=== PATIENT | female | born 1975 | race African-American/Black ===

== ENCOUNTER → 2020-01-11 08:33 | Outpatient (CLI) | payer OTHER, SELFPAY ==
--- NOTE | ~2020-01-11 | CT_ITS ---
EXAMINATION: CT lumbar spine wo con DATE: 01/11/2020 08:50 INDICATION: Low back pain. Other spondylosis with myelopathy, lumbar region. TECHNIQUE: Computed tomography (CT) of the lumbar spine was performed without intravenous contrast. A utomated exposure control and iterative reconstruction technique were employed. The dose-length produ ct was 900.15 mGy-cm. COMPARISON: Lumbar spine MRI 09/30/2011 FINDINGS: Bone alignment is normal. Vertebral body heights and intervertebral disc heights are normal . The following disc levels are specifically discussed: L1-L2: The disc does not extend beyond the endplate margin. There is mild bilateral facet joint osteo arthritis. There is no neural foraminal stenosis. There is no central canal stenosis. L2-L3: The disc does not extend beyond the endplate margin. There is mild bilateral facet joint osteo arthritis. There is no neural foraminal stenosis. There is no central canal stenosis. L3-L4: The disc is mildly bulging. There is mild bilateral facet joint osteoarthritis. There is mild left neural foraminal stenosis. There is no central canal stenosis. L4-L5: The disc is bulging. There is severe bilateral facet joint osteoarthritis. There is mild bilat eral neural foraminal stenosis. There is mild central canal stenosis. L5-S1: The disc does not extend beyond the endplate margin. There is severe right and moderate left f acet joint osteoarthritis. There is mild bilateral neural foraminal stenosis. There is no central can al stenosis. IMPRESSION: 1. Mild lumbar spondylosis. Reviewed, dictated and finalized at location A. IMPRESSION: 1. Mild lumbar spondylosis.
== END ==
PROVIDERS: PCP Family Medicine; Visit Provider Family Medicine
DX: M47.16 Other spondylosis with myelopathy, lumbar region (principal)
CPT/HCPCS: 72131

== ENCOUNTER 2020-05-09 10:00 | Outpatient (RCR) | payer OTHER, SELFPAY ==
--- NOTE | 2020-02-09 10:55 | PTOPEVAL ---
INITIAL PHYSICAL THERAPY EVALUATION and PLAN OF CARE Thank you for referring Janett Oconnor to [facility].? Janett is scheduled to be seen for physical therapy? 2x/week for 4 weeks. Please review, sign, date and return this plan of care ANALI. I agree with and certify that the following plan of care is medically necessary. Referring Physician Date Admitting Provider: Attending Provider: PHYSICIAN NOT ON STAFF Referring Provider: *PT Outpatient Evaluation Start: 02/09/20 09:49 Freq: Status: Active Protocol: Document 02/09/20 09:40 LISETH (Rec: 02/09/20 10:55 LISETH [id number]) Therapy Assessment Status Assessment Status Assessment Status Evaluation Outpatient Past Medical History Past Medical History Source of Past Medical History Patient Neurological History Hx Neurological Disorders No Significant History Cardiovascular History Hx Hypertension Yes Respiratory History Hx Respiratory Disorders No Significant History Gastrointestinal History Hx Gastroesophageal Reflux Disease Yes Genitourinary History Hx Genitourinary Disorders No Significant History Musculoskeletal History Hx Back Pain Yes Hx Spinal Surgery Yes: C3-5 fusion Endocrine History Hx Endocrine Disorders No Significant History Evaluation Information Problem Diagnosis Acute on chronic lumbar pain Subjective Information Last year around 22 of December Query Text:As Reported By Patient/ 2019 - pain across lower back Family - took a trip with father - pain lasted for about a month - rest made it better and medication. Returned July 2019 - just came back - mild but there - then around December - went on another car trip - broke up the drive - 2nd leg of trip - flared up again - tried medication - wouldn't calm down - then added hydromorphone - which she has weaned herself from. She was passenger. Standing is worse, sitting a little better, walking the best. Sleeping is disturbed. Difficulty getting out of bed - sitting to standing - movement is the worse. Feels better after a shower - heat does help it at times. Usually takes 1-1.5 hours to
--- NOTE | 2020-03-07 11:27 | PTOPEVAL ---
PHYSICAL THERAPY RE-EVALUATION and PLAN OF CARE UPDATE Thank you for referring Janett Oconnor to [facility].? Janett has made minimal gains towards goals set. Would like to switch her exercises to therapeutic exercises in an aquatic environment to see if core strength gains can be made with reduced back pain. The patient is scheduled to be seen for physical therapy? 2x/week for 3 weeks. Please review, sign, date and return this plan of care ANALI. I agree with and certify that the following plan of care is medically necessary. Referring Physician Date Admitting Provider: Attending Provider: PHYSICIAN NOT ON STAFF Referring Provider: *PT Outpatient Evaluation Start: 02/09/20 09:49 Freq: Status: Active Protocol: Document 03/07/20 10:15 LISETH (Rec: 03/07/20 11:22 LISETH [id number]) Therapy Assessment Status Assessment Status Assessment Status Re-evaluation Evaluation Information Problem Subjective Information Janett received injection 08/05/ Query Text:As Reported By Patient/ 2019 - L5/S1 interlaminar Family epidural. Janett feels better after joint mobilization - less clicking when walking. She can then tell when things start to go off with increase in clicking. Not sure how effective ultrasound was due to having injection later that same day, but overall feeling much better since 03/05/2020. Pain Assessment Timing of Pain Assessment Timing of Pain Assessment Assessment Pain Scale Pain Scale Used Numeric (1 - 10) Self Report Pain Assessment Lower Back Reported Pain Level 2 Other Pain Description clicking with walking Lowest Pain Intensity 2 Greatest Pain Intensity 5 Pain Score Pain Score 2: Self Report Muscle Length Testing Muscle Length Testing Right Hamstring Length -15 Query Text:(90 - 90 Position) Palpation Assessment Palpation Palpation Decreased tenderness/tissue tension R buttock muscles today. Less tenderness with sacral P-A mob. Decreased lateral mobility L5/S1 L to R as compared R to L. No tenderness with P-A mob lumbar spinal segments. Mild tightness present with lumbar/ sacral musculature. Aquatic Therapy Assessment Aquatic Therapy Assessment Fear of Water No Cardiac Issues Affecting Aquatic No Treatment
--- NOTE | 2020-04-02 14:25 | PCPTNOTE ---
Patient called & cancelled scheduled appointment this date due to having another appointment, her re-eval will need to be reschedule.
--- NOTE | 2020-04-04 10:44 | PTOPEVAL ---
PHYSICAL THERAPY EVALUATION and UPDATED PLAN OF CARE Thank you for referring Janett Oconnor to [facility].? Janett is scheduled to be seen for physical therapy? 2x/week for 4 weeks - 1x/wk on land, 1x/wk in aquatic environment. Please review, sign, date and return this updated plan of care ANALI. I agree with and certify that the following plan of care is medically necessary. Referring Physician Date Admitting Provider: Attending Provider: Sha Dash MD Referring Provider: *PT Outpatient Evaluation Start: 02/09/20 09:49 Freq: Status: Active Protocol: Document 04/04/20 10:10 LISETH (Rec: 04/04/20 10:44 LISETH [email or web address]) Therapy Assessment Status Assessment Status Assessment Status Re-evaluation Evaluation Information Problem Subjective Information September reports that she Query Text:As Reported By Patient/ received another injection in Family her tailbone area - discomfort along lower back, into R buttock/thigh region. She reports still having clicking on R side -but just the sound not painful. Enjoying the aquatic therapy - enjoys the jet pulsating action. Sleeping better. Doing more sitting at her desk - will feel better - but still having some discomfort with that. She feels that she is doing well now - but not at her normal activity level. She would like to continue with PT - 1 land, 1 aquatic for several more weeks so that she can increase her activity level while being supervised and monitored with the increase in activity. Pain Assessment Timing of Pain Assessment Timing of Pain Assessment Assessment Pain Scale Pain Scale Used Numeric (1 - 10) Self Report Pain Assessment Lower Back Reported Pain Level 2 Lowest Pain Intensity 2 Greatest Pain Intensity 4 Pain Score Pain Score 2: Self Report Cervical and Lumbar ROM Lumbar ROM Lumbar Flexion (0-90) 65 Query Text:Active in Degrees Lumbar Extension (0-40) 10 Query Text:Active in Degrees Lumbar Lateral Flexion Right (0-40) 15 Query Text:Active in Degrees Lumbar Lateral Flexion Left (0-40) 15 Query Text:Active in Degrees Lumbar Comments
--- NOTE | 2020-05-07 14:19 | PCPTNOTE ---
Patient called & cancelled scheduled appointment this date due to having another appointment.
--- NOTE | 2020-05-09 10:57 | PTOPEVAL ---
PHYSICAL THERAPY DISCHARGE SUMMARY Thank you for referring Janett Oconnor to [facility].? Janett has been seen in PT x 20 visits - combination of land based and aquatic based. She has met goals set and ready for d/c from PT to HEP. She is always welcomed to phone with any questions and/or concerns. I agree with Janett's discharge from PT. Referring Physician Date Admitting Provider: Attending Provider: PHYSICIAN NOT ON STAFF Referring Provider: *PT Outpatient Evaluation Start: 02/09/20 09:49 Freq: Status: Active Protocol: Document 05/09/20 10:00 LISETH (Rec: 05/09/20 10:57 LISETH [email or web address]) Therapy Assessment Status Assessment Status Assessment Status Discharge Evaluation Information Problem Subjective Information September states that there is Query Text:As Reported By Patient/ still something present with R Family lower back - doesn't get any better but then doesn't get any worse. Learning to live with this discomfort. Currently at 6 hours with work , to see Dr. Corbett after May 21 - then anticipating returning to full 8 hour work day. Injection in R SIJ/ sacral region - really helps. Not due for any further injections until June 2020. Household activity tolerance - better not 100% - still restricted with sweeping, mopping, vacuuming, cleaning bathtub. Hasn't done much outdoor activities. With work related activities - sitting tolerance ~ 1 hour. Pain Assessment Timing of Pain Assessment Timing of Pain Assessment Assessment Pain Scale Pain Scale Used Numeric (1 - 10) Self Report Pain Assessment Lower Back Reported Pain Level 1 Pain Description With Movement Other Pain Description twisting type of discomfort Lowest Pain Intensity 1 Greatest Pain Intensity 3 Pain Score Pain Score 1: Self Report Interventions Used Interventions Used By Clinicians Exercise Cervical and Lumbar ROM Lumbar ROM Lumbar Flexion (0-90) 55 Query Text:Active in Degrees Lumbar Extension (0-40) 20 Query Text:Active in Degrees Lumbar Lateral Flexion Right (0-40) 10 Query Text:Active in Degrees Lumbar Lateral Flexion Left (0-40) 10 Query Text:Active in Degrees
== END 2020-05-09 23:59 | disposition home or self-care (01) ==
LOC: ANHPT 10:00
PROVIDERS: PCP Family Medicine
DX: M54.5 Low back pain (principal)
CPT/HCPCS: 97014; 97035; 97110; 97113; 97140; 97161; G0283

== ENCOUNTER 2020-10-24 16:02 | Outpatient (CLI) | payer OTHER, SELFPAY ==
--- NOTE | ~2020-10-24 | XR_ITS ---
EXAMINATION: XR knee LT 3V DATE: 10/24/2020 16:45 INDICATION: Posterior left knee pain TECHNIQUE: AP, lateral and sunrise views of the left knee were obtained COMPARISON: None. FINDINGS: Alignment is normal. No fracture. Spaces appear normal. No joint effusion. Soft tissues are unremark able. IMPRESSION: 1. Negative left knee radiographs. Reviewed, dictated and finalized at location A.
--- NOTE | ~2020-10-24 | US_ITS ---
EXAMINATION: US venous doppler [facility] DATE: 10/24/2020 16:34 INDICATION: Lower limb swelling TECHNIQUE: Grayscale ultrasound images without and with compression and Doppler ultrasound images of the bilateral lower extremity veins were obtained. COMPARISON: None. FINDINGS: The visualized portions of right common femoral vein, profunda (deep) femoral vein, femoral vein, pop liteal vein, posterior tibial veins, peroneal veins, gastrocnemius vein and greater saphenous vein ou tflow are patent. The visualized portions of left common femoral vein, profunda femoral vein, femoral vein, popliteal v ein, posterior tibial veins, peroneal veins, gastrocnemius vein and greater saphenous vein outflow ar e patent. IMPRESSION: 1. No deep venous thrombosis in either lower limb. Reviewed, dictated and finalized at location A.
== END 2020-10-24 16:03 | disposition home or self-care (01) ==
PROVIDERS: PCP Family Medicine; Visit Provider Family Medicine
DX: R60.9 Edema, unspecified (principal); M25.562 Pain in left knee
CPT/HCPCS: 73562; 93970

== ENCOUNTER 2021-09-17 10:27 | Outpatient (CLI) | payer OTHER, SELFPAY ==
--- NOTE | ~2021-09-17 | MR_ITS ---
EXAMINATION: MR ankle LT wo con DATE: 09/17/2021 11:24 INDICATION: Unspecified injury of the Achilles tendon with left heel pain TECHNIQUE: Magnetic resonance imaging (MRI) of the left ankle was performed without intravenous contr ast. Sequences included sagittal, coronal, and axial proton-density weighted fast spin echo without a nd with fat saturation. COMPARISON: None. FINDINGS: Medial ankle ligaments: Deep and superficial deltoid ligaments as well as the spring ligament are normal. Lateral ankle ligaments: The anterior and posterior inferior tibiofibular ligaments are normal. The anterior talofibular, calc aneofibular and posterior talofibular ligaments are normal. Tendons: Tiny T1 hyperintense likely enthesopathic ossicles at the distalmost Achilles tendon which appears ot herwise normal with no tear, peritendinitis or thickening to suggest significant tendinosis. The reece neus longus and brevis tendons are normal. The tibialis anterior and extensor hallucis longus and ext ensor digitorum longus tendons are normal. The tibialis posterior, flexor digitorum longus and flexor hallucis longus tendons are normal. Plantar fascia: Plantar aponeurosis is normal. Bones/other: Bone alignment is normal. Normal marrow signal throughout with no fracture or pathologic marrow repla cing process. Joint spaces are normal. Fluid: Physiologic amount fluid in the joint spaces. No bursitis or tenosynovitis. 9 x 6 x 8 mm ganglion cys t along the lateral neck of the talus which appears to arise from the anterolateral aspect of the tib iotalar joint. Small amount of subcutaneous edema along the medial and lateral sides of the ankle. IMPRESSION: 1. Tiny enthesopathic ossicles at the distalmost aspect of the otherwise normal-appearing Achilles te ndon with no tear, peritendinitis or significant tendinosis. Reviewed, dictated and finalized at location A. IMPRESSION: 1. Tiny enthesopathic ossicles at the distalmost aspect of the otherwise normal -appearing Achilles tendon with no tear, peritendinitis or significant tendinos is.
== END 2021-09-17 10:28 | disposition home or self-care (01) ==
LOC: ANHIMG 10:35
PROVIDERS: PCP Family Medicine; Visit Provider Nurse Practitioner Gerontology
DX: S86.002A Unspecified injury of left Achilles tendon, initial encounter (principal)
CPT/HCPCS: 73721

== ENCOUNTER 2021-12-29 01:00 | Day surgery (SDC) | payer OTHER, SELFPAY ==
[2021-12-23 12:47] VITALS: BMI 42.2
--- NOTE | 2021-12-23 12:58 | PC.NURSE ---
Report to the Outpatient Waiting Room, entrance under the green pavilion located off [facility], at time __08:45AM__ on date __12-29-21__. OR Time: __10:45AM_. - You and your visitor will be asked a series of questions to screen for COVID 19 for your protection. - Only one visitor is allowed at this time. - The patient visitor is requested to leave or wait in car when not with patient. - A mask is required within the hospital. Patients may have clear liquids (water, carbonated beverages, clear teas, apple juice) until 3 hours prior to surgery with a maximum of 20 ounces. NPO 07:45AM - No food from midnight until time of surgery Take the following medications with a SIP of water the morning of surgery: TAKE DAILY MEDS Wednesday Medications to discontinue per physician N/A Date to take last dose Please no make-up, nail palauan, hairspray, perfume, deodorant, or body powder the day of surgery. No jewelry (including any body piercings) or valuables the day of surgery, leave them at home. Please take a shower or bath the night before, or the morning of, surgery with an antibacterial soap. Wear comfortable, loose fitting clothing. - Jewelry must be removed prior to entering the operating room. Rings and piercings that are not removed may be cut off. - The hospital will not accept responsibility for valuables. - Please leave all valuables, including medications, at home the day of surgery. If you are going home after surgery, a licensed superintendent drivers must drive you home. - NO public transportation without another adult. - We recommend that an adult stay with you for 24 hours following discharge. - We also recommend that you do not drive, make important decision, drink alcoholic beverages, or take any drugs that were not prescribed by your health care provider for at least 24 hours after your discharge time. Follow any additional instructions given to you from your surgeon. If you or anyone in your household have experienced Covid symptoms in the past week, please notify your surgeon or the nurse liaison at the phone number below for possible testing. Telephone instructions given to ____PATIENT and asked if any additional questions and then verbalized understanding. Patient advised to call surgeon office or pre surgery nurse liaison [phone] if any additional questions.
--- NOTE | 2021-12-29 08:25 | WPDHPUPDATE1 ---
History and Physical Update Update Date/Time: 12/29/21 08:25 History and Physical has been reviewed, including an updated exam of the patient. There are NO changes in the patient's condition. Risks, benefits, and alternatives have been discussed and questions answered. Patient agrees to proceed with procedure.
--- NOTE | 2021-12-29 08:25 | PM.HPGS ---
History of Present Illness History of Present Illness Consent: Risks, benefits, and alternatives have been discussed and questions answered. Patient agrees to proceed with procedure. Chief complaint: Menorrhagia Narrative: Janett Oconnor is a 46 year old female with new onset of prolonged menstrual bleeding. Patient with regular cycles until very recently when she had prolonged bleeding. Hemoglobin was normal and pelvic ultrasound revealed 1 fibroid. It was recommended to proceed with hysteroscopy. Risks of infection, bleeding, and perforation were reviewed. Possible pathology was discussed. The patient agrees to proceed. Review of Systems Review of Systems: All systems reviewed & are unremarkable except as noted in HPI and below (History of present illness) [facility] Past Medical History Medical History (Updated 12/29/21 @ 08:34 by Jeni Jo MD) Abnormal Papanicolaou smear of cervix with positive human papilloma virus (HPV) test History of cryo surgery Anxiety Chlamydia 1994 Constipation by delayed colonic transit Essential (primary) hypertension MDD (major depressive disorder), recurrent episode, moderate Mixed hyperlipidemia Morbid (severe) obesity due to excess calories (normal spontaneous vaginal delivery) Osteoarthritis of spine with radiculopathy, cervical region Syphilis 1992 Surgical History Surgical History (Updated 12/29/21 @ 08:32 by Jeni Jo MD) H/O laparoscopy X2 for ectopic in 2004 and 2008 History of cholecystectomy History of fusion of cervical spine 3 surgeries 1 in 2012 and 2 in 2016 Family History Family History Father Hypertension Cerebrovascular accident Family history of diabetes mellitus in first degree relative Family history of premature coronary heart disease, Onset Age: 40 Family history of elevated blood lipids Family history of chronic obstructive pulmonary disease Mother Patient's mother is in good health Sibling Patient's brother is in good health Other Breast cancer Depression Diabetes mellitus Epilepsy Heart disease Social History Social History Social History: Smoking status: Never smoker Second hand tobacco smoke exposure: No Alcohol intake: current Drinks per week: 2 Alcohol use details: COCKTAILS/WINE Substance use: never Substance use type: does not use Living arrangements: with family 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 Gender identity (if verbalized by the patient): Female Sexual Orientation (if Verbalized by the Patient): Straight or Heterosexual Spiritual care concerns: No Meds Home Medications and Allergies Home Medications Medication Instructions Recorded Confirmed Type acetaminophen 300 mg-codeine 30 mg 1 tablet PO Q8H PRN pain #20 tabs 09/17/21 12/23/21 Rx tablet celecoxib 200 mg capsule 200 mg PO DAILY PRN Pain 12/23/21 12/23/21 History clonidine HCl 0.1 mg tablet 0.1 mg PO DAILY 12/23/21 12/23/21 History ergocalciferol (vitamin D2) 1,250 1 cap PO WEEKLY 12/23/21 12/23/21 History mcg (50,000 unit) capsule furosemide 40 mg tablet 40 mg PO DAILY 12/23/21 12/23/21 History lisinopril 20 mg tablet 20 mg PO DAILY 12/23/21 12/23/21 History metoprolol succinate 25 mg 25 tablet PO DAILY 12/23/21 12/23/21 History tablet,extended release 24 hr Allergies Allergy/AdvReac Type Severity Reaction Status Date / Time No Known Allergies Allergy Verified 12/23/21 12:41 Exam Const: General: comfortable Nutritional Appearance: obese (BMI 43.4) Orientation/consciousness: patient oriented x3 GI: GI Palp: Yes Soft to palpation, No Tenderness to palpation present (GI) and No Palpable mass present : External Female Exam: normal external appearance Speculum Exam - Vagina: normal appearance of the vagina and normal v
[2021-12-29 08:44] VITALS: BP 157/80; PULSE 63; RESP 18; TEMP 37; O2SAT 98
[2021-12-29] MEDS: LACTATED RINGERS 1,000 ML 30 ML IV CONT ×2 (08:58→11:36)
[2021-12-29] MEDS: ACETAMINOPHEN 500 MG TABLET 1000 MG PO (08:59)
--- NOTE | 2021-12-29 09:09 | WPDANESEPPF ---
Anes - Initial Pre Proc Eval Procedure: Operation Date: 12/29/21 10:45 Proposed Procedures p Hysteroscopy with Dilation and Curettage - Jeni Jo MD Date/Time: 12/29/21 09:09 Surgeon: Jeni Jo MD Pre Op Diagnosis: Menorrhagia Patient Data Age: 46 Gender: F Height: 1.65 m Weight: 111.9 kg Last Vital Signs Temp 37.0 C 12/29/21 08:44 Pulse 63 12/29/21 08:44 Resp 18 12/29/21 08:44 BP 157/80 H 12/29/21 08:44 Pulse Ox 98 12/29/21 08:44 O2 Del Method Room Air 12/29/21 08:44 Allergies Allergy/AdvReac Type Severity Reaction Status Date / Time No Known Allergies Allergy Verified 12/29/21 08:43 Home Medications Medication Instructions Recorded Confirmed Type acetaminophen 300 mg-codeine 30 mg 1 tablet PO Q8H PRN pain #20 tabs 09/17/21 12/29/21 Rx tablet celecoxib 200 mg capsule 200 mg PO DAILY PRN Pain 12/23/21 12/29/21 History clonidine HCl 0.1 mg tablet 0.1 mg PO DAILY 12/23/21 12/29/21 History ergocalciferol (vitamin D2) 1,250 1 cap PO WEEKLY 12/23/21 12/29/21 History mcg (50,000 unit) capsule furosemide 40 mg tablet 40 mg PO DAILY 12/23/21 12/29/21 History lisinopril 20 mg tablet 20 mg PO DAILY 12/23/21 12/29/21 History metoprolol succinate 25 mg 25 tablet PO DAILY 12/23/21 12/29/21 History tablet,extended release 24 hr Patient hx anesthesia problems: none Family hx anesthesia problems: none Results Review: All pre-operative results and documents have been reviewed as part of the pre-operative evaluation. [facility] Past Medical History Medical History Abnormal Papanicolaou smear of cervix with positive human papilloma virus (HPV) test History of cryo surgery Anxiety Chlamydia 1994 Constipation by delayed colonic transit Essential (primary) hypertension MDD (major depressive disorder), recurrent episode, moderate Mixed hyperlipidemia Morbid (severe) obesity due to excess calories (normal spontaneous vaginal delivery) Osteoarthritis of spine with radiculopathy, cervical region Syphilis 1992 Surgical History Surgical History H/O laparoscopy X2 for ectopic in 2004 and 2008 History of cholecystectomy History of fusion of cervical spine 3 surgeries 1 in 2012 and 2 in 2016 Family History Family History Father Hypertension Cerebrovascular accident Family history of diabetes mellitus in first degree relative Family history of premature coronary heart disease, Onset Age: 40 Family history of elevated blood lipids Family history of chronic obstructive pulmonary disease Mother Patient's mother is in good health Sibling Patient's brother is in good health Other Breast cancer Depression Diabetes mellitus Epilepsy Heart disease Social History Social History Social History: Smoking status: Never smoker Second hand tobacco smoke exposure: No Alcohol intake: current Drinks per week: 2 Alcohol use details: COCKTAILS/WINE Substance use: never Substance use type: does not use Living arrangements: with family 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
[2021-12-29] MEDS: KETOROLAC 30 MG/ML VIAL (*BKC) IV PUSH (10:45)
--- NOTE | 2021-12-29 10:49 | W.PM.PROC2 ---
Procedure Note - Detailed Date of Procedure 12/29/21 Pre-op Diagnosis Menorrhagia Post-op Diagnosis Same Procedure Performed D&C hysteroscopy Surgeon Jeni Jo MD Anesthesia MAC and Local Findings Uterus sounds to 9cm and appears grossly normal Description of Procedure The patient is taken to the operating room and placed under anesthesia in the dorsal lithotomy position. She was prepped and draped in the usual sterile fashion. [place] speculum was placed in the vagina and the cervix grasped on the anterior lip with a tenaculum. The cervix is injected in each quadrant with 1% lidocaine. The uterus is sounded to 9cm. The cervix is serially dilated with Hegars to an 8. The diagnostic hysteroscope was then placed and with no abnormalities noted it was removed. The medium sharp curette is used to curette the endometrium until a good uterine cry was noted in all areas. All instruments were then removed. Sponge, needle, and instrument counts are correct per the OR staff. Patient is awakened from anesthesia and taken to recovery in stable condition. Estimated Blood Loss 5 Drains No Packing No Pathology Yes (Endometrial curettings) Complications No immediate complications Condition Stable Disposition PACU
[2021-12-29 10:53] VITALS: BP 157/97; PULSE 69; RESP 16; O2SAT 100
[2021-12-29 11:20] VITALS: BP 148/90; PULSE 49; O2SAT 99
[2021-12-29] MEDS: fentaNYL CITRATE INJ (*CRX) 100 MCG/2 ML VIAL 25 MCG IV PUSH ×2 (11:40→11:43)
[2021-12-29 11:50] VITALS: BP 165/97; PULSE 51
[2021-12-29] MEDS: oxyCODONE HCL (*CRX) 5 MG TAB IR PO (11:50)
[2021-12-29 12:20] VITALS: BP 149/91; PULSE 51
== END 2021-12-29 12:30 | disposition home or self-care (01) ==
PROVIDERS: PCP Family Medicine; Visit Provider Obstetrics & Gynecology Gynecology
PROC: 0U5B8ZZ Destruction of Endometrium, Via Natural or Artificial Opening Endoscopic (ICD-10-PCS; CPT 58563; principal; 2021-12-29 10:45)
DX: N92.0 Excessive and frequent menstruation with regular cycle (principal); I10 Essential (primary) hypertension; E78.2 Mixed hyperlipidemia; K59.01 Slow transit constipation; M47.22 Other spondylosis with radiculopathy, cervical region; F33.1 Major depressive disorder, recurrent, moderate; F41.9 Anxiety disorder, unspecified; E66.01 Morbid (severe) obesity due to excess calories; Z68.41 Body mass index [BMI] 40.0-44.9, adult
CPT/HCPCS: 58558; 88305; A9270; J1100; J1885; J2250; J2405; J2704; J3010; J7120

== ENCOUNTER 2022-03-03 10:14 | Outpatient (CLI) | payer OTHER, SELFPAY ==
--- NOTE | 2022-03-03 11:30 | NEURO_ITS ---
Impression: # Complains of numbness and pain of lower extremities. # Normal motor nerve conduction study. # Asymmetrical sensory neuropathy. # Normal needle/EMG exam. # Clinical correlation recommended. Nerve Conduction Studies Anti Sensory Summary Table Stim Site NR Peak (ms) P-T Amp (?V) Site1 Site2 Delta-P (ms) Dist (cm) Yoandy (m/s) Left Sup Fibular Anti Sensory (Ant Lat Mall) 14 cm 3.5 19.8 14 cm Ant Lat Mall 3.5 16.0 46 Right Sup Fibular Anti Sensory (Ant Lat Mall) NO RESPONSE 14 cm NR 14 cm Ant Lat Mall 16.0 Left Sural Anti Sensory (Lat Mall) Calf 4.0 2.1 Calf Lat Mall 4.0 16.0 40 Right Sural Anti Sensory (Lat Mall) NO RESPONSE Calf NR Calf Lat Mall 16.0 Motor Summary Table Stim Site NR Onset (ms) O-P Amp (mV) Site1 Site2 Delta-0 (ms) Dist (cm) Yoandy (m/s) Left Peroneal Motor (Vastus Med) Ankle 4.4 2.9 Popit Ankle 7.7 40.0 52 Popit 12.1 2.1 Right Peroneal Motor (Vastus Med) Ankle 4.7 2.1 Popit Ankle 8.0 37.0 46 Popit 12.7 3.0 Left Tibial Motor (Abd Zhao Brev) Ankle 5.1 4.5 Knee Ankle 8.8 41.0 47 Knee 13.9 3.1 Right Tibial Motor (Abd Zhao Brev) Ankle 4.9 6.4 Knee Ankle 9.1 40.0 44 Knee 14.0 2.6 F Wave Studies NR F-Lat (ms) L-R F-Lat (ms) Left Peroneal (Mrkrs) (EDB) 50.00 1.81 Right Peroneal (Mrkrs) (EDB) 48.20 1.81 Left Tibial (Mrkrs) (Abd Hallucis) 50.75 1.05 Right Tibial (Mrkrs) (Abd Hallucis) 49.70 1.05 EMG Side Muscle Nerve Root Ins Act Fibs Amp Dur Recrt Comment Right AntTibialis Dp Br Fibular L4-5 Nml Nml Nml Nml Nml Right Gastroc Tibial S1-2 Nml Nml Nml Nml Nml Right Fibularis Long Sup Br Fibular L5-S1 Nml Nml Nml Nml Nml Right Flex Dig Long Tibial L5-S2 Nml Nml Nml Nml Nml Right Ext Dig Brev Dp Br Fibular L5, S1 Nml Nml Nml Nml Nml Left AntTibialis Dp Br Fibular L4-5 Nml Nml Nml Nml Nml Left Gastroc Tibial S1-2 Nml Nml Nml Nml Nml Left Fibularis Long Sup Br Fibular L5-S1 Nml Nml Nml Nml Nml Left Flex Dig Long Tibial L5-S2 Nml Nml Nml Nml Nml Left Ext Dig Brev Dp Br Fibular L5, S1 Nml Nml Nml Nml Nml MTDD
== END 2022-03-03 10:15 | disposition home or self-care (01) ==
LOC: ANHNEURO 10:15
PROVIDERS: PCP Family Medicine; Visit Provider Nurse Practitioner Family
DX: G62.89 Other specified polyneuropathies (principal)
CPT/HCPCS: 95886; 95910

== ENCOUNTER 2022-10-23 14:39 | Outpatient (CLI) | payer OTHER, SELFPAY ==
--- NOTE | ~2022-10-23 | MM_ITS ---
EXAMINATION: MM screening anum BI w deidre HISTORY: Screening mammogram TECHNIQUE: Craniocaudal and mediolateral oblique 3-D tomosynthesis images were obtained and synthetic 2-D images were generated. CAD analysis was submitted and interpreted. COMPARISON: 11/12/2011 BREAST PARENCHYMAL COMPOSITION: There are scattered areas of fibroglandular density. FINDINGS: No suspicious mass, calcification, or architectural distortion are identified in either nicolle ast to suggest malignancy. There has been no suspicious interval change. IMPRESSION: 1. No mammographic evidence of malignancy. 2. Recommend routine screening mammography in one year. BI-RADS Category 1: Negative Reviewed, dictated and finalized at location A.
== END 2022-10-23 14:40 | disposition home or self-care (01) ==
LOC: ANHIMG 14:42
PROVIDERS: PCP Family Medicine; Visit Provider Family Medicine
DX: Z12.31 Encounter for screening mammogram for malignant neoplasm of breast (principal)
CPT/HCPCS: 77063; 77067

== ENCOUNTER 2022-11-07 11:56 | Outpatient (CLI) | payer OTHER, SELFPAY ==
--- NOTE | ~2022-11-07 | MR_ITS ---
EXAMINATION: MR cervical spine wo con DATE: 11/07/2022 12:34 INDICATION: Neck pain radiating down both arms. TECHNIQUE: Magnetic resonance imaging (MRI) of the cervical spine was performed without intravenous c ontrast. Sequences included sagittal T2-weighted FSE, sagittal T2-weighted FS FSE, sagittal T1-weight ed FSE, axial MERGE, and axial T2-weighted FSE. COMPARISON: Cervical spine MRI 10/20/2017 FINDINGS: There is hypolordosis of cervical spine. There are changes of anterior fusion procedure fro m C4 to T1 with interbody bone graft and anterior plates and screws. Vertebral body heights are angel l. There is mildly decreased disc height at C3-C4. The spinal cord signal intensity is normal. The fo llowing disc levels are specifically discussed: C2-C3: There is a central protrusion. There is moderate left uncovertebral joint osteoarthritis. Ther e is moderate bilateral facet joint osteoarthritis. There is mild left neural foraminal stenosis. The re is no central canal stenosis. C3-C4: The disc is bulging. There is mild bilateral uncovertebral joint osteoarthritis. There is mild bilateral facet joint osteoarthritis. There is mild bilateral neural foraminal stenosis. There is mi ld central canal stenosis. C4-C5: There is no uncovertebral joint hypertrophy. There is no facet joint osteoarthritis. There is no neural foraminal stenosis. There is no central canal stenosis. C5-C6: There is no uncovertebral joint hypertrophy. There is no facet joint osteoarthritis. There is no neural foraminal stenosis. There is mild central canal stenosis. C6-C7: There is no uncovertebral joint hypertrophy. There is no facet joint osteoarthritis. There is no neural foraminal stenosis. There is no central canal stenosis. C7-T1: There is no uncovertebral joint hypertrophy. There is mild bilateral facet joint osteoarthriti s. There is no neural foraminal stenosis. There is no central canal stenosis. IMPRESSION: 1. Mild cervical spondylosis, stable from 10/20/2017. 2. Anterior fusion procedure from C4 to T1. Reviewed, dictated and finalized at location A.
== END 2022-11-07 11:57 | disposition home or self-care (01) ==
PROVIDERS: PCP Family Medicine; Visit Provider Family Medicine
DX: M96.0 Pseudarthrosis after fusion or arthrodesis (principal); M47.892 Other spondylosis, cervical region; Z98.1 Arthrodesis status
CPT/HCPCS: 72141

== ENCOUNTER → 2023-08-05 07:28 | Outpatient (CLI) | payer OTHER, SELFPAY ==
--- NOTE | ~2023-08-05 | MR_ITS ---
MRI of the lumbar spine Clinical History: Back pain Technique: Axial T2-weighted images, and sagittal T1-weighted, T2-weighted, and T2 fat-sat images wer e acquired. Findings: There is no fracture in the lumbar spine. There is 4 mm anterolisthesis of L4 over L5. No s uspicious bone marrow signal abnormality seen. At L1-L2, L2-L3, L3-L4, there is no disc bulge or herniation. No spinal canal stenosis or neural fora mackenzie narrowing at these levels. At L4-L5, there is mild disc bulge with advanced facet arthropathy. No central canal stenosis or neur al foraminal narrowing. At L5-S1, there is minimal disc bulge and advanced facet arthropathy. No central canal stenosis. Ther e is minimal right neural foraminal narrowing. Left neural foramen preserved. Paravertebral soft tissues are unremarkable. Impression: 4 mm anterolisthesis of L4 over L5. Minimal degenerative change, as above. Reviewed, dictated and finalized at location . 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 Minimal degenerative change, as above.
== END ==
PROVIDERS: PCP Nurse Practitioner Family; Visit Provider Nurse Practitioner Family
DX: M54.51 Vertebrogenic low back pain (principal); M43.16 Spondylolisthesis, lumbar region
CPT/HCPCS: 72148

== ENCOUNTER 2023-10-15 14:45 | Outpatient (RCR) | payer OTHER, SELFPAY ==
--- NOTE | 2023-09-06 11:20 | OPREHPOC ---
Outpatient Therapy Plan of Care This is a Multidisciplinary Plan of Care that may contain components documented by all disciplines (PT, OT, and ST.) PT Problem 1 PT Problem #1 Knowledge Deficit PT Goal 1 Goal * indep with HEP PT Problem 2 PT Problem #2 Pain PT Goal 1 Goal 1* pt report pain rating of neck 7/10 at worst 2* self assessment rating of Neck Disability Index 38% limitation in activity 3* pt report with sleeping, taking less meds PT Problem 3 PT Problem #3 Impaired Flexibility PT Goal 1 Goal pt perform sitting, 3 reps without an increase in pain, cervical motions: 1* rotation R 2* rotation L 3* flexion 4* extension 5* side bend R 6* side bend L 7* with palpation over L upper traps, minimal spasms and minimal tenderness reported.
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
--- NOTE | 2023-10-01 10:59 | PCPTNOTE ---
Pt. called and cancelled appointment. Pt. left voicemail to cancel. Pt. did not leave a reason for cancelling.
--- NOTE | 2023-10-06 16:24 | OPREHPOC ---
Outpatient Therapy Plan of Care This is a Multidisciplinary Plan of Care that may contain components documented by all disciplines (PT, OT, and ST.) PT Problem 1 PT Problem #1 Knowledge Deficit PT Goal 1 Goal * indep with HEP Progress Met Comment 10-06-23 progress met goal continue to progress HEP and education PT Goal 2 Target Visit 8 PT Problem 2 PT Problem #2 Pain PT Goal 1 Goal 1* pt report pain rating of neck 7/10 at worst 2* self assessment rating of Neck Disability Index 38% limitation in activity 3* pt report with sleeping, taking less meds Progress Not Met Comment 10-06-23 progress improved with #1 of 8/10; #2 56% continue towards goals PT Goal 2 Target Visit 8 PT Problem 3 PT Problem #3 Impaired Flexibility PT Goal 1 Goal pt perform sitting, 3 reps without an increase in pain, cervical motions: 1* rotation R 2* rotation L 3* flexion 4* extension 5* side bend R 6* side bend L 7* with palpation over L upper traps, minimal spasms and minimal tenderness reported. Progress Not Met Comment 10-06-23 progress goals not met continue towards PT Goal 2 Target Visit 8
--- NOTE | 2023-10-06 16:24 | PTOPPROG ---
Assessment and note entered by Megha Tipton, PT Progress Information Assessment Status Progress Diagnosis chronic neck and back pain- radicular pain; aquatic therapy Onset 05-22-24 Subjective Information having a bad today with more pain and did not sleep well last night; past few days have been having headaches; therapy is helping--like the tape, massage and exercises, but not good today; frustrated about the pain not letting up; PAIN: range in the past few days 4-8/10; L side of neck, upper traps and shoulder; started having headaches; neck pain woke her up last night and could not get comfortable for sleeping; have not taken any meds for sleeping in the past 3 nights; Assessment PT Clinical Summary September has received 8 PT sessions. Compared to the initial evaluation: pain range of 3-10/10 to 4-8/10, but reports now of headaches; continues to use meds for sleeping; self assessment Neck Disability Index rating from 58% to 56% limitation; continues to have pain with cervical rotation R & L, flexion and extension motions, with ranges about the same; continues to have spasms and tightness over cervical and upper traps areas. The modalities give her some relief and she had been improved with the treatment sessions, but having a bad day today. The goals were partially met. Continue PT treatments. Plan of Care Interventions Electrical Stimulation,Hot Pack/Cold Pack,Manual Therapy,Neuro Re-education,Patient Education,Therapeutic Activities,Therapeutic Exercise,Ultrasound,Other Other Interventions taping, IASTM, dry needling PT Services Indicated Yes Treatment Frequency and 2x/wk for 8 visits Duration These treatments will address the objective and functional deficits as defined above. The patient will be advanced safely and appropriately in order for the patient to progress towards his/her prior level of function. Additional exercises will be introduced and as well as a comprehensive home exercise program upon discharge, if needed, ?to ensure carryover of functional gains achieved in the clinic. This treatment plan has been reviewed and agreement upon by the patient.
--- NOTE | 2023-10-13 15:15 | PCPTNOTE ---
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
--- NOTE | 2023-10-19 15:14 | PCPTNOTE ---
No call no show this date.
--- NOTE | 2023-10-26 11:03 | PCPTNOTE ---
Pt canceled due to work conflict.
--- NOTE | 2023-11-02 15:27 | PCPTNOTE ---
Pt NS visit today.
--- NOTE | 2023-11-04 15:58 | PCPTNOTE ---
pt did not show for today's reeval; called her and left voicemail. Will d/c if she does not return call by tomorrow.
--- NOTE | 2023-11-09 11:51 | PTOPDC ---
Assessment and note entered by Megha Tipton, PT Discharge Information Assessment Status Discharge - Pt Not Present Diagnosis chronic neck and back pain- radicular pain; aquatic therapy Onset 05-22-24 Subjective Information pt was not seen this date. Assessment PT Clinical Summary September has received 10 PT sessions. She called & canceled 4 and did not show for 3 appointments. Discharge PT services, due to her not showing for appointments. The goals were not assessed. Plan of Care PT Services Indicated No
== END 2023-11-09 13:09 | disposition home or self-care (01) ==
LOC: ANHPT 14:45
PROVIDERS: PCP Nurse Practitioner Family; Visit Provider Physician Assistant
DX: M54.16 Radiculopathy, lumbar region (principal); M54.12 Radiculopathy, cervical region; M54.51 Vertebrogenic low back pain; M54.59 Other low back pain; M96.0 Pseudarthrosis after fusion or arthrodesis; G89.4 Chronic pain syndrome
CPT/HCPCS: 97014; 97035; 97110; 97140; 97161; 97530; 99199; G0283

== ENCOUNTER 2024-04-04 11:07 | Outpatient (CLI) | payer OTHER, SELFPAY ==
--- NOTE | ~2024-04-04 | MR_ITS ---
EXAMINATION: MR thoracic spine wo con DATE: 04/04/2024 11:52 INDICATION: Thoracic back pain. TECHNIQUE: Magnetic resonance imaging (MRI) of the thoracic spine was performed without intravenous c ontrast. Sagittal localizer T1-weighted FSE of the cervical spine was obtained. Thoracic spine sequen saadia included sagittal T2-weighted FSE, sagittal T1-weighted FSE, sagittal T2-weighted FS FSE, and axi al T2-weighted FSE. COMPARISON: Thoracic spine MRI 02/14/2019 FINDINGS: There is 4 degrees dextrocurvature of thoracic spine. There are changes of anterior fusion procedure from C4 to T1 with anterior plate and screws. Vertebral body heights are normal. There is m ildly decreased disc height at T5-T6 and T6-T7. At T5-T6, there is a central extrusion with mild cent ral canal stenosis and ventral indentation of the spinal cord. At T6-T7, there is a central protrusio n with mild central canal stenosis. There is multilevel [id number] facet joint osteoarthritis. No neural foraminal stenosis. The spinal cord signal intensity is normal. IMPRESSION: 1. Mild thoracic spondylosis. 2. Anterior fusion procedure from C4 to T1. Reviewed, dictated and finalized at location A.
== END 2024-04-04 11:08 | disposition home or self-care (01) ==
LOC: MICIMG 11:08
PROVIDERS: PCP Family Medicine; Visit Provider Nurse Practitioner Family
DX: M47.814 Spondylosis without myelopathy or radiculopathy, thoracic region (principal); M43.23 Fusion of spine, cervicothoracic region
CPT/HCPCS: 72146

== ENCOUNTER 2024-09-06 12:44 | Outpatient (CLI) | payer OTHER, SELFPAY ==
--- OUTSIDE RECORDS SUMMARY | 2024-09-06 14:08 | XMS_ITS | CONTINUITY OF CARE DOCUMENT ---
Author Name bell luu Address Unknown Organization [facility] Address [address] [place] [address] [address] [place] [address] Phone [phone] Care Team Providers Care Jewel Hole Gauger Name Role Phone Ross ALCANTAR, Collin Unavailable PRAVIN ALCANTAR, LINH Ruiz Unavailable Unavailmarie ORDAZ MD, MIRIAM Lucas Unavailable INSURANCE PROVIDERS Payer name Policy type / Coverage type [place] red green party ID TAMERA MARINO [id number]
--- OUTSIDE RECORDS SUMMARY | 2024-09-06 14:08 | XMS_ITS | Clinical Summary ---
Author Organization [facility] Address [address] [place] [id number] Care Team Providers Care Orthophotography Technician Name Role Phone Chelle Elam MD Primary Care Provider Allergies No known active allergies Medications furosemide (LASIX) 40 mg tablet Take 40 mg by mouth daily Active celecoxib (CeleBREX) 200 mg capsule Take 200 mg by mouth as needed for pain 11/16/2021 Active metoprolol XL (TOPROL-XL) 25 mg extended release tablet Take 1 tablet (25 mg total) by mouth daily 30 tablet 1 11/24/2021 Active lisinopriL (PRINIVIL,ZESTRIL ) 40 mg tabletIndications :Precordial pain,Obstructive sleep apnea,Essential (primary) hypertension Take 1 tablet (40 mg total) by mouth daily 90 tablet 12/26/2021 Active Active Problems Problem Noted Date Diagnosed Date Psychophysiological insomnia 01/14/2022 Restless legs 01/14/2022 Palpitation 01/14/2022 BMI 40.0-44.9, adult 01/14/2022 Chest pain 11/22/2021 Hypertensive urgency Class 3 severe obesity due t o excess calories with serious comorbidity and body mass index (BMI) of 40.0 to 44.9 in adult Sinus bradycardia Essential (primary) hypertension Hypercholesteremia Stage 2 chronic kidney disease Gastroesophageal reflux disease without esophagi tis Chronic fatigue syndrome ARI (obstructive sleep apnea) Resolved Problems Problem Noted Date Diagnosed Date Resolved Date Abnormal stress test 022 Surgical History Surgery Date Site/Laterality Comments CHOLECYSTECTOMY CERVICAL SPINE SURGERY SALPINGECTOMY Medical History Medical History Date Comments Hypertension Chronic back pain Social History Tobacco Use Types Packs/Day Years Used Date Smoking Tobacco: Never Smokeless Tobacco: Never Alcohol Use Standard Drinks/Week Comments Yes 0 (1 standard drink = 0.6 oz pur e alcohol) social AUDIT-C Answer Date Recorded Q1: How often do you have a drink containing alc ohol? 2-3 times a week 11/24/2021 Q2: How many drinks containi ng alcohol do you have on a typical day when you are drinking? 1 or 2 11/24/2021 Q3: How often do you have si x or more drinks on one occasion? Less than monthly 11/24/2021 Personal Safety Answer Date Recorded Have you ever been in or are you currently in a harmful physical or emotional relationship or is someone making you feel afraid or unsafe? Denies 05/22/2023 Comments Unknown Sex and Gender Information Value Date Recorded Sex Assigned at Not on file Legal Sex Female 6:38 AM HEMODIALYSIS RN Gender Identity Not on file Sexual Orientation Not on file Obstetrics History Last Filed Vital Signs Vital Sign Reading Time Taken Comments Blood Pressure 168/100 05/22/2023 3:30 PM HEMODIALYSIS RN Pulse 80 05/22/2023 3:30 PM HEMODIALYSIS RN Temperature 36.8 C (98.2 F) 05/22/2023 1:36 PM HEMODIALYSIS RN Respiratory Rate 18 05/22/2023 3:30 PM HEMODIALYSIS RN Oxygen Saturation 100% 05/22/2023 3:30 PM HEMODIALYSIS RN Inhaled Oxygen Concentration - - Weight 108 kg (238 lb) 05/22/2023 1:36 PM HEMODIALYSIS RN Height 165.1 cm (5' 5 ) 05/22/2023 1:36 PM HEMODIALYSIS RN Body Mass Index 39.61 05/22/2023 1:36 PM HEMODIALYSIS RN Plan of Treatment Health Maintenance Due Date Last Done Comments Breast Cancer Screening-Mammogram 1973 Cervical Cancer Screening 1973 Colon Cancer Screening-Colonoscopy 1973 Depression Screening 1973 Hepatitis C Screening 1973 DTaP/Tdap/Td Vaccine (1 - Tdap) 1984 Hepatitis B Screening 1991 Regular Well Visit/Exam 18-64 1991 Zoster Vaccine (1 of 2) 2023 Covid-19 Vaccine ( - season) 2024 07/01/2021, 10/11/2020, 09/20/2020 Influenza Vaccine (#1) 2024 , 03/21/2020, 04/07/2013, Additional history exists Pneumococcal vaccine <65 Aged Out 04/07/2013 No longer eligible based on patient's age to complete this topic Medical Devices Implanted Type Area Tool Designer Apprentice Device Identifier Shelf Expiration Date Model / Serial / Lot Angio-Seal Vip 6fr Closere Device [id number] - [id number] Implanted:Qty: 1 on 11/24/2021 by Shawn Mars MD at [facility] [id number] 08/18/2022 [id number] / / [id number] Insurance [facility] CLAIMS [facility] CLAIMS [facility] Advance Directives For more information, please contact: [phone] * Full Code (Latest Code Status on File) Date Activated Date Inactivated Comments 11/22/2021 10:19 PM 11/24/2021 11:16 PM Care Teams Orthophotography Technician Relationship Specialty Start Date End Date Chelle Elam MD [address] [address] PCP - General Family Medicine 11/22/21
--- OUTSIDE RECORDS SUMMARY | 2024-09-06 14:09 | XMS_ITS | Clinical Summary ---
Author Organization [facility] Address [facility] [place] [address] Care Team Providers Care Online Merchandising Specialist Name Role Phone Chelle Elam MD Primary Care Provider [phone] Allergies No known active allergies Medications amLODIPine 10 MG tablet 12/02/2017 Active escitalopram 20 MG tablet Take 20 mg by mouth daily. 11/06/2019 Active LINZESS 290 MCG capsule 01/18/2020 Active orphenadrine ER 100 MG TABLET SR 12 HR 12 hr tablet Take 1 tablet by mouth 2 (two) times daily. 10/27/2016 Active omeprazole 40 MG capsule TK 1 C PO D 10/23/2019 Active triamterene-hydr oCHLOROthiazide 37.5-25 MG tablet 01/31/2020 Active ALPRAZolam 0.5 MG tablet 04/10/2020 Active cloNIDine 0.1 MG tablet 04/13/2020 Active lisinopril 20 MG tablet Take 20 mg by mouth daily. 03/04/2020 Active tiZANidine 4 MG tablet 05/22/2020 Active Active Problems No known active problems Social History Tobacco Use Types Packs/Day Years Used Date Smoking Tobacco: Never Smokeless Tobacco: Never Comments Unknown Sex and Gender Information Value Date Recorded Sex Assigned at Not on file Legal Sex Female 5:33 PM CDT Gender Identity Not on file Sexual Orientation Not on file Last Filed Vital Signs Vital Sign Reading Time Taken Comments Blood Pressure 128/72 05/23/2020 10:35 AM PAPER BAG MAKING MACHINIST Pulse 88 05/23/2020 10:35 AM PAPER BAG MAKING MACHINIST Temperature - - Respiratory Rate - - Oxygen Saturation - - Inhaled Oxygen Concentration - - Weight 121.7 kg (268 lb 6.4 oz) 020 10:35 AM PAPER BAG MAKING MACHINIST Height 165.1 cm (5' 5 ) 05/23/2020 10:3 5 AM PAPER BAG MAKING MACHINIST Body Mass Index 44.66 05/23/2020 10:35 AM PAPER BAG MAKING MACHINIST Plan of Treatment Health Maintenance Due Date Last Done Comments Cervical Cancer Screening Pa p Smear (Age 30 to 64) Every 3 Years 1973 Colorectal Cancer Screening Colonoscopy (10 Years) 1973 Annual Physical 1976 Hepatitis C 1991 DTaP, Tdap and Td Vaccines ( 1 - Tdap) 1992 Hepatitis B Vaccines (1 of 3 - 19+ 3-dose series) 1992 Cervical Cancer Screening Pa p with HPV Testing (Age 30 to 64) Every 5 Years 2003 Cervical Cancer Screening with HPV 2003 Mammogram Screening 2013 Zoster Vaccines (1 of 2) 2023 COVID-19 Vaccine ( - 2023-2 5 season) 2024 Influenza Adult (#1) 2024 03/21/2020 Meningococcal B Vaccine Aged Out No l onger eligible based on patient's age to complete this topic Meningococcal Vaccine Aged Out No blake josh eligible based on patient's age to complete this topic Pneumococcal Vaccine: Pediat rics (0 to 5 Years) and At-Risk Patients (6 to 64 Years) Aged Out No longer eligi ble based on patient's age to complete this topic RSV Immunizations Under 20 Months Aged Out No longer eligible based on patient's age to complete this topic Insurance Advance Directives Documents on File Type Date Recorded Patient Lesson Instructor Expl anation Advance Directives and Livin g Will 09/29/2016 POWER OF PENSION MANAGER Care Teams Online Merchandising Specialist Relationship Specialty Start Date End Date Chelle Elam MD [address] [facility] [address] [place] [address] PCP - General 01/14/17
--- OUTSIDE RECORDS SUMMARY | 2024-09-06 14:09 | XMS_ITS | Referral Summary ---
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 Gender Identity Not on file Sexual Orientation Not on file Last Filed Vital Signs Vital Sign Reading Time Taken Comments Blood Pressure 168/100 05/22/2023 3:30 PM PLUMBING ASSEMBLER INSTALLER Pulse 80 05/22/2023 3:30 PM PLUMBING ASSEMBLER INSTALLER Temperature 36.8 C (98.2 F) 05/22/2023 1:36 PM PLUMBING ASSEMBLER INSTALLER Respiratory Rate 18 05/22/2023 3:30 PM PLUMBING ASSEMBLER INSTALLER Oxygen Saturation 100% 05/22/2023 3:30 PM PLUMBING ASSEMBLER INSTALLER Inhaled Oxygen Concentration - - Weight 108 kg (238 lb) 05/22/2023 1:36 PM PLUMBING ASSEMBLER INSTALLER Height 165.1 cm (5' 5 ) 05/22/2023 1:36 PM PLUMBING ASSEMBLER INSTALLER Body Mass Index 39.61 05/22/2023 1:36 PM PLUMBING ASSEMBLER INSTALLER Plan of Treatment Not on file Medical Devices Implanted Type Area Cleaning Professional Device Identifier Shelf Expiration Date Model / Serial / Lot Angio-Seal Vip 6fr Closere Device [id number] - [id number] Implanted:Qty: 1 on 11/24/2021 by Shawn Mars MD at [facility] [id number] 08/18/2022 [id number] / / [id number] Insurance [facility] CLAIMS [id number] [place] [address] CLAIMS MRA Member Subscriber Plan / Payer (Ef fective 2023-Present) Name:Janett Thompson Relation to Subscriber:Self Name:Janett Thompson Payer ID:Not on file Group ID:Not on file Type:OTHER Address: [facility] [address] [facility] Advance Directives For more information, please contact: [phone] * Full Code (Latest Code Status on File) Date Activated Date Inactivated Comments 11/22/2021 10:19 PM 11/24/2021 11:16 PM Care Teams Technical Account Representative Relationship Specialty Start Date End Date Chelle Elam MD [address] [facility] [address] [facility] [address] [place] [phone] PCP - General Family Medicine 11/22/21
--- NOTE | 2024-09-06 14:30 | NEURO_ITS ---
Impression: # Non diabetic Complains of numbness of hands bilaterally he ? # Normal Nerve Conduction Study motor and sensory and with normal F-waves. ? # No Carpal Tunnel Syndrome or ulnar neuropathy. ? # Normal needle/EMG exam. # clinical correlation recommended. Anti Sensory Summary Table ?Stim Site NR Peak (ms) P-T Amp (?V) Site1 Site2 Delta-P (ms) Dist (cm) Yoandy (m/s) Left Median Anti Sensory (2-3nd Digit) Wrist ? 3.0 67.8 Wrist 2-3nd Digit 3.0 14.0 47 Wrist ? 3.1 76.6 Wrist 2-3nd Digit 3.0 14.0 47 Right Median Anti Sensory (2-3nd Digit) Wrist ? 2.8 72.4 Wrist 2-3nd Digit 2.8 14.0 50 Wrist ? 2.8 70.6 Wrist 2-3nd Digit 2.8 14.0 50 Left Radial Anti Sensory (Base 1st Digit) Wrist ? 2.6 15.5 Wrist Base 1st Digit 2.6 0.0 Right Radial Anti Sensory (Base 1st Digit) Wrist ? 2.0 60.6 Wrist Base 1st Digit 2.0 0.0 Left Ulnar Anti Sensory (5th Digit) Wrist ? 2.7 74.3 Wrist 5th Digit 2.7 14.0 52 Right Ulnar Anti Sensory (5th Digit) Wrist ? 2.6 38.8 Wrist 5th Digit 2.6 14.0 54 Motor Summary Table ?Stim Site NR Onset (ms) O-P Amp (mV) Site1 Site2 Delta-0 (ms) Dist (cm) Yoandy (m/s) Left Median Motor (Abd Poll Brev) Wrist ? 2.7 9.0 Elbow Wrist 4.8 29.0 60 Elbow ? 7.5 9.4 Right Median Motor (Abd Poll Brev) Wrist ? 2.7 10.8 Elbow Wrist 4.6 28.0 61 Elbow ? 7.3 10.5 Left Ulnar Motor (Abd Dig Minimi) Wrist ? 2.3 9.3 A Elbow Wrist 4.3 28.0 65 A Elbow ? 6.6 7.3 Right Ulnar Motor (Abd Dig Minimi) Wrist ? 2.4 8.8 A Elbow Wrist 4.3 29.0 67 A Elbow ? 6.7 13.1 B Elbow Wrist 3.5 24.0 69 B Elbow ? 5.9 9.4 F Wave Studies ?NR F-Lat (ms) L-R F-Lat (ms) Left Median (Mrkrs) (Abd Poll Brev) ? 27.02 1.81 Right Median (Mrkrs) (Abd Poll Brev) ? 25.21 1.81 Left Ulnar (Mrkrs) (Abd Dig Min) ? 27.29 1.59 Right Ulnar (Mrkrs) (Abd Dig Min) ? 25.70 1.59 EMG ?Side Muscle Nerve Root Ins Act Fibs Amp Dur Recrt Comment Right 1stDorInt Ulnar C8-T1 Nml Nml Nml Nml Nml Right Ext Indicis Radial (Post Int) C7-8 Nml Nml Nml Nml Nml Right Ext Digitorum Radial (Post Int) C7-8 Nml Nml Nml Nml Nml Right BrachioRad Radial C5-6 Nml Nml Nml Nml Nml Right PronatorTeres Median C6-7 Nml Nml Nml Nml Nml Right Abd Poll Brev Median C8-T1 Nml Nml Nml Nml Nml Right ABD Dig Min Ulnar C8-T1 Nml Nml Nml Nml Nml Left 1stDorInt Ulnar C8-T1 Nml Nml Nml Nml Nml Left Ext Indicis Radial (Post Int) C7-8 Nml Nml Nml Nml Nml Left Ext Digitorum Radial (Post Int) C7-8 Nml Nml Nml Nml Nml Left BrachioRad Radial C5-6 Nml Nml Nml Nml Nml Left PronatorTeres Median C6-7 Nml Nml Nml Nml Nml Left Abd Poll Brev Median C8-T1 Nml Nml Nml Nml Nml Left ABD Dig Min Ulnar C8-T1 Nml Nml Nml Nml Nml MTDD
== END 2024-09-06 12:45 | disposition home or self-care (01) ==
PROVIDERS: PCP Family Medicine; Visit Provider Student in an Organized Health Care Education/Training Program
DX: R20.0 Anesthesia of skin (principal); E11.9 Type 2 diabetes mellitus without complications
CPT/HCPCS: 95886; 95911

== ENCOUNTER 2024-09-06 13:36 | Outpatient (CLI) | payer OTHER, SELFPAY ==
--- NOTE | ~2024-09-06 | XR_ITS ---
SINGLE AP VIEW PELVIS Ordering provider: Mireya Soriano MD History: . Sacroiliitis . Comparison: None. FINDINGS: BONES: No acute fracture or dislocation. HIP JOINT SPACES: Normal. SACROILIAC JOINT SPACES/LUMBAR SPINE: Sacroiliitis seen in the upper right sacroiliac joint. Otherwis e normal. Mild degenerative changes of the visualized lower lumbar spine. PUBIC SYMPHYSIS: Normal. SOFT TISSUES: Normal. IMPRESSION: No acute osseous abnormality pelvis. Focal sacroiliitis in the right joint. Reviewed, dictated and finalized at location A.
== END 2024-09-06 13:37 | disposition home or self-care (01) ==
PROVIDERS: PCP Family Medicine; Visit Provider Physical Medicine & Rehabilitation Pain Medicine
DX: M46.1 Sacroiliitis, not elsewhere classified (principal)
CPT/HCPCS: 72190

== ENCOUNTER 2024-10-30 14:52 | Outpatient (CLI) | payer OTHER, SELFPAY ==
--- NOTE | ~2024-10-30 | MR_ITS ---
MRI of the cervical spine Clinical History: Radiculopathy Technique: Axial T2-weighted and gradient images, and sagittal T1-weighted, T2-weighted, and STIR chata ges were acquired. Findings: There is no fracture or subluxation of the cervical spine. There is straightening of normal cervical lordosis. There is anterior interbody fusion from C4 through T1. No suspicious bone marrow signal abnormality seen. At C2-C3, there is mild degenerative disc narrowing. There is minimal disc osteophyte complex and min imal left facet arthropathy. No spinal canal stenosis, cord compression, or definite neural foraminal narrowing. At C3-C4, there is advanced degenerative disc narrowing. There is diffuse disc osteophyte complex wit h mild canal stenosis but no segun cord compression. Neural foramina are preserved with minimal bilat eral facet arthropathy. At C4-C5, there is no disc bulge or herniation. No spinal canal stenosis, cord compression or neural foraminal narrowing. At C5-C6, there is mild posterior osteophyte without canal stenosis or cord compression. No neural fo raminal narrowing. At C6-C7, there is no disc bulge or herniation. No spinal canal stenosis, cord compression, or neural foraminal narrowing. No abnormal signal seen in the spinal cord. Paravertebral soft tissues are otherwise unremarkable. Impression: Qlol-ah-kzetoxrs degenerative spondylosis at C3-C4, as detailed above. Extensive anterior and interbody fusion from C4 through T1. Reviewed, dictated and finalized at [facility]. Impression: Bomb-nz-rtdslzwi degenerative spondylosis at C3-C4, as detailed above. Extensive anterior and interbody fusion from C4 through T1.
== END 2024-10-30 14:53 | disposition home or self-care (01) ==
LOC: MICIMG 14:52
PROVIDERS: PCP Family Medicine; Visit Provider Physical Medicine & Rehabilitation Pain Medicine
DX: M47.812 Spondylosis without myelopathy or radiculopathy, cervical region (principal); Z98.1 Arthrodesis status
CPT/HCPCS: 72141

== ENCOUNTER 2024-11-26 09:39 | Emergency (ER) | payer OTHER, SELFPAY ==
--- NOTE | ~2024-11-26 | CT_ITS ---
CT of the Abdomen and Pelvis: Indication: Abdominal pain Technique: 2.5 mm axial scans were obtained through the abdomen and pelvis following intravenous adm inistration of 100 cc of Omnipaque 350. Dose reduction technique was used on this scan by utilizing a utomated exposure control and iterative reconstruction technique. The dose-length product (DLP) was 1 192.34 mGy-cm. Findings: Scans through the lung bases are unremarkable. The liver, spleen, pancreas, adrenals and kidneys are within normal limits. Cholecystectomy clips are present. No evidence of aortic aneurysm. No lymphadenopathy. No bowel obstruction or bowel wall thickening. There is no evidence to suggest acute appendicitis. Images through the pelvis were performed. Urinary bladder unremarkable. 3.2 cm left ovarian cyst pres ent. No right adnexal mass seen. No ascites. Impression: 3.2 cm left ovarian cyst. No other significant findings. Reviewed, dictated and finalized at [facility]. Impression: 3.2 cm left ovarian cyst. No other significant findings.
--- OUTSIDE RECORDS SUMMARY | 2024-11-26 09:42 | XMS_ITS | Patient Health Record ---
Author Organization [facility] Address [address] [facility] [address] [place], [place] [id number] Care Team Providers Care Gasoline Engine Inspector Name Role Phone ONELIA LOPES Primary Care Provider Marilu Marie Unavailable [phone] Irene Copeland Unavailable [phone] ALLERGIES No Known Allergies RESULTS Component Value Reference Range Notes Complement C4, Serum Reviewed date:09/29/2024 12:32:08 PM Interpretation: Performing Lab:[facility], Scan•Jour [facility] Phone - [phone], Director - PhDElla Notes/Report: Complement C4, Serum 68 12-38 mg/dL T4 Free Reviewed date:09/29/2024 12:31:42 PM Interpretation: Performing Lab:[facility], Picreel [facility] Phone - [phone], Director - PhDElla Notes/Report: T4,Free(Direct) 1.20 0.82-1.77 ng/dL Aldolase Reviewed date:09/29/2024 12:31:53 PM Interpretation: Performing Lab:[facility], [facility], Phone - [phone], Director - PhDElla Notes/Report: Aldolase 5.4 3.3-10.3 U/L TSH Reviewed date:09/29/2024 12:32:02 PM Interpretation: Performing Lab:[facility], [address], [place], Phone - [phone], Director - PhDDaniellei Notes/Report: TSH 2.040 0.450-4.500 uIU/mL CBC With Differential/Platel et Reviewed date:09/29/2024 03:06:39 PM Interpretation: Performing Lab:[facility] [place], [address] [place] [address], Phone - [phone], Director - [facility] Notes/Report: WBC 4.9 3.4-10.8 x10E3/uL RBC 4.91 3.77-5.28 x10E6/uL Hemoglobin 13.4 11.1-15.9 g/dL Hematocrit 43.4 34.0-46.6 % MCV 88 79-97 fL MCH 27.3 26.6-33.0 pg MCHC 30.9 31.5-35.7 g/dL RDW 14.2 11.7-15.4 % Platelets 315 150-450 x10E3/uL Neutrophils 43 Not Estab. % Lymphs 44 Not Estab. % Monocytes 10 Not Estab. % Eos 2 Not Estab. % Basos 1 Not Estab. % Immature Cells Neutrophils (Absolute) 2.1 1.4-7.0 x10E3/uL Lymphs (Absolute) 2.1 0.7-3.1 x10E3/uL Monocytes(Absolute) 0.5 0.1-0.9 x10E3/uL Eos (Absolute) 0.1 0.0-0.4 x10E3/uL Baso (Absolute) 0.1 0.0-0.2 x10E3/uL Immature Granulocytes 0 Not Estab. % Immature Grans (Abs) 0.0 0.0-0.1 x10E3/uL NRBC Hematology Comments: Sed Rate - Westergren Reviewed date:09/29/2024 12:56:22 PM Interpretation: Performing Lab:[facility] [place], [address] [place] [address], Phone - [phone], Director - [facility] Notes/Report: Sedimentation Rate-Westergren 12 0-40 mm/hr Complement C3, Serum Reviewed date:09/29/2024 12:31:56 PM Interpretation: Performing Lab:[facility] [place], [address] [place] [address], Phone - [phone], Director - Hayden Notes/Report: Complement C3, Serum 187 82-167 mg/dL Rheumatoid Arthritis Factor Reviewed date:09/29/2024 12:32:04 PM Interpretation: Performing [facility], Phone - [phone], [facility] Notes/Report: Rheumatoid Factor (RF) <10.0 <14.0 IU/mL C-Reactive Protein, Quant Reviewed date:09/29/2024 12:56:27 PM Interpretation: Performing Lab:[facility] [address] [place] [address], Phone - [phone], [facility] Notes/Report: C-Reactive Protein, Quant 8 0-10 mg/L Thyroid Peroxidase and Antit hyroglobunlin Antibodies Reviewed date:09/29/2024 12:31:47 PM Interpretation: Performing Lab:[facility] [address] [place] [address], Phone - [phone], [facility] Notes/Report: Thyroid Peroxidase (TPO) Ab 16 0-34 IU/mL Thyroglobulin Antibody <1.0 0.0-0.9 IU/mL Thyroglobulin Antibody measured by [employer] . It should be noted that the presence of thyroglobulin antibodies may not be pathogenic nor diagnostic, especially at very low levels. The assay general car supervisor yard has found that four percent of individuals without evidence of thyroid disease or autoimmunity will have positive TgAb levels up to 4 IU/mL. HLA B 27 Disease Association Reviewed date:09/29/2024 12:32:06 PM Interpretation: Performing Lab:[facility] [address] [place] [address], Phone - [phone], [facility] Notes/Report: HLA-B27 Negative HLA-B*27 Negative B27 allele interpretation for all loci based on IMGT/HLA database version 3.58 This test was developed and its performance characteristics determined by [facility]. It has not been cleared or approved by the Food and Drug Administration. The FDA has determined that such clearance or approval is not necessary. HLA Lab CLIA ID Number [id number] This test was performed using Polymerase Chain Reaction (PCR) and Sequence Specific Oligonucleotide Probes (SSOP) technique. Sequence Based Typing (SBT) may be used as a supplemental method when necessary. If you have questions, please call [employer] service at or email at [email or web address]. CCP IgG Antibodies Reviewed date:09/29/2024 12:31:51 PM Interpretation: Performing Lab:[facility], Phone - [phone], Director - [facility] Notes/Report: Anti-CCP Ab, IgG/IgA 6 0-19 units Negative <20 Weak positive 20 - 39 Moderate positive 40 - 59 Strong positive >59 Comp. Metabolic Panel (14) Reviewed date:09/29/2024 03:06:34 PM Interpretation: Performing Lab:[facility] [place], [address] [place] [address], Phone - [phone], Director - [facility] Notes/Report: Glucose 99 70-99 mg/dL BUN 20 6-24 mg/dL Creatinine 1.24 0.57-1.00 mg/dL eGFR 53 >59 mL/min/1.73 BUN/Creatinine Ratio 16 9-23 Sodium 142 134-144 mmol/L Potassium 3.6 3.5-5.2 mmol/L Chloride 102 96-106 mmol/L Carbon Dioxide, Total 24 20-29 mmol/L Calcium 9.4 8.7-10.2 mg/dL Protein, Total 7.4 6.0-8.5 g/dL Albumin 4.3 3.8-4.9 g/dL Globulin, Total 3.1 1.5-4.5 g/dL Bilirubin, Total 0.5 0.0-1.2 mg/dL Alkaline Phosphatase 97 44-121 IU/L AST (SGOT) 31 0-40 IU/L ALT (SGPT) 38 0-32 IU/L SHAKILA Panel (SHAKILA+NIRAJ+Scl 70+Sj Radha+SjoSSB) Reviewed date:09/29/2024 02:07:03 PM Interpretation: Performing Lab:[facility], [address] [facility], Phone - [phone], Director - [facility] Notes/Report: SHAKILA by IFA Rfx Titer/Pattern Negative Negative <1:80 Borderline 1:80 Positive >1:80 ICAP nomenclature: AC-0 For more information about Hep-2 cell patterns use ANApatterns.org, the official website for the International Consensus on Antinuclear Antibody (SHAKILA) Patterns (ICAP). REVIEW NURSE Antibodies <0.2 0.0-0.9 AI Maciel Antibodies <0.2 0.0-0.9 AI Antiscleroderma-70 Antibodies <0.2 0.0-0.9 AI Sjogren's Anti-SS-A <0.2 0.0-0.9 AI Sjogren's Anti-SS-B <0.2 0.0-0.9 AI VITAMIN B12 Reviewed date:09/29/2024 12:31:58 PM Interpretation: Performing Lab:[facility] [address], Phone - [phone], Director - [facility] Notes/Report: Vitamin B12 918 212-4510 pg/mL DS DNA-CRITHIDIA IFA W/REFLE X TO TITER-[facility] Reviewed date:09/29/2024 12:31:43 PM Interpretation: Performing Lab:[facility] [address], Phone - [phone], Director - [facility] Notes/Report: dsDNA Crithidia luciliae IFA Negative Negative REASON FOR REFERRAL No Information MEDICATIONS Medication SIG (Take, Route, Frequency, Duration) Notes Start Date End Date Status acetaminophen-codeine Active Motrin IB 200 mg 1 cap(s) orally ever y 6 hours Active predniSONE Active bumetanide 1 mg 1 tab(s) orally once a day Active potassium 20meq Active hydroCHLOROthiazide 25 mg 1 tab(s) orally once a day Active irbesartan 300 mg 1 tab(s) orally once a day Active Tylenol 8 Hour 650 mg 2 tab(s) orally ev monroe 8 hours Active cyclobenzaprine PRN Acti ve diclofenac PRN Active PROBLEMS Problem Type ICD Code Onset Dates Problem Status W/U Status Risk SNOMED Code Notes Problem Paresthesia (R20.2) Active confirmed 90455032 VITAL SIGNS Heart Rate 83 /min 10/04/2024 Blood pressure diastolic 66 mm Hg 10/04/2024 Height 65 in 10/04/2024 Blood pressure systolic 150 mm Hg 10/04/2024 Weight 282 lbs 10/04/2024 BMI 46.92 kg/m2 10/04/2024 Encounters Encounter Location Date Provider Diagnosis [facility], [address], [address] [place], [place] [id number] 10/04/2024 Irene Copeland Polyarthralgia M25.5 0 ; SHAKILA positive R76.8 ; Myalgia M79.10 ; Paresthesia R20.2 and Dorsalgia, unspecified M54.9 [facility] [address] [place] [address], [address] [place], [place] [phone] 09/20/2024 Marilu Virginia Polyarthralgia M25.5 0 ; SHAKILA positive R76.8 ; Myalgia M79.10 ; Paresthesia R20.2 and Dorsalgia, unspecified M54.9 [facility] [address] [place] [address], [address] [place], [place] [id number] 09/19/2024 Marilu Coleman ASSESSMENTS Encounter Date Diagnosis Assessment Notes Treatment Notes Treatment Clinical Notes Section Notes 10/04/2024 SHAKILA positive (ICD-10 - R76.8) Several complaints with reportedly positive SHAKILA- Serologies with negative SHAKILA, SHAKILA panel, DsDNA, RF/CCP and HLA-B27. No evidence of CTD or inflammatory arthritis at this time. 10/04/2024 Polyarthralgia (ICD-10 - M25.50) Several complaints with reportedly positive SHAKILA- Serologies with negative SHAKILA, SHAKILA panel, DsDNA, RF/CCP and HLA-B27. No evidence of CTD or inflammatory arthritis at this time. 09/20/2024 SHAKILA positive (ICD-10 - R76.8) Several complaints with reportedly positive SHAKILA- check additional labs to evaluate for an underlying inflammatory arthritis or CTD. Review imaging done by ortho/pain mgmnt. Reviewed patients health history forms 09/20/2024 Polyarthralgia (ICD-10 - M25.50) Several complaints with reportedly positive SHAKILA- check additional labs to evaluate for an underlying inflammatory arthritis or CTD. Review imaging done by ortho/pain mgmnt. Reviewed patients health history forms 10/04/2024 Myalgia (ICD-10 - M79.10) Several complaints with reportedly positive SHAKILA- Serologies with negative SHAKILA, SHAKILA panel, DsDNA, RF/CCP and HLA-B27. No evidence of CTD or inflammatory arthritis at this time. 09/20/2024 Myalgia (ICD-10 - M79.10) Several complaints with reportedly positive SHAKILA- check additional labs to evaluate for an underlying inflammatory arthritis or CTD. Review imaging done by ortho/pain mgmnt. Reviewed patients health history forms 10/04/2024 Paresthesia (ICD-10 - R20.2) Several complaints with reportedly positive SHAKILA- Serologies with negative SHAKILA, SHAKILA panel, DsDNA, RF/CCP and HLA-B27. No evidence of CTD or inflammatory arthritis at this time. 09/20/2024 Paresthesia (ICD-10 - R20.2) Several complaints with reportedly positive SHAKILA- check additional labs to evaluate for an underlying inflammatory arthritis or CTD. Review imaging done by ortho/pain mgmnt. Reviewed patients health history forms 10/04/2024 Dorsalgia, unspecified (ICD-10 - M54.9) Several complaints with reportedly positive SHAKILA- Serologies with negative SHAKILA, SHAKILA panel, DsDNA, RF/CCP and HLA-B27. No evidence of CTD or inflammatory arthritis at this time. 09/20/2024 Dorsalgia, unspecified (ICD-10 - M54.9) Several complaints with reportedly positive SHAKILA- check additional labs to evaluate for an underlying inflammatory arthritis or CTD. Review imaging done by ortho/pain mgmnt. Reviewed patients health history forms PLAN OF TREATMENT No Information Insurance Providers Payer Name Payer Address Payer Phone Subscriber Number Group Number Insured Name Patient Relationship to Insured Coverage Start Date Coverage End Date [facility] 2020 MEGAN Martin [phone] [id number] Patricio Oconnor Spouse - patient is the spouse of the insured 5 MEDICAL (GENERAL) HISTORY Medical History History ICD Code blurred vision sinus problems neuropathy anxiety depression swelling of ankles/feet weight gain/loss Surgical History Surgery Date(Month/Year) Cervical spine fusion X2
--- OUTSIDE RECORDS SUMMARY | 2024-11-26 09:43 | XMS_ITS ---
Author Organization [facility] Address [address] [place], [place] [phone] Care Team Providers Care Tank Charger Name Role Phone ONELIA LOPES Primary Care Provider UnavailMarilu Jackson Unavailable [phone] REASON FOR VISIT referral Encounters Encounter Location Date Provider Diagnosis [facility] [address], [address] [place], [place] [phone] 09/19/2024 Marilu Coleman PLAN OF TREATMENT No Information
--- OUTSIDE RECORDS SUMMARY | 2024-11-26 09:43 | XMS_ITS | CONTINUITY OF CARE DOCUMENT ---
Author Name bell luu Address Unknown Organization [facility] Address [address] [place] [address] [address] [place] [address] Phone [phone] Care Team Providers Care Adult Health Clinical Nurse Specialist Name Role Phone Ross ALCANTAR, Collin Unavailable PRAVIN ALCANTAR, LINH Ruiz Unavailable Unavailmarie ORDAZ MD, MIRIAM Lucas Unavailable INSURANCE PROVIDERS Payer name Policy type / Coverage type Mobile red libertarian ID TAMERA MARINO [id number]
--- OUTSIDE RECORDS SUMMARY | 2024-11-26 09:43 | XMS_ITS | Continuity of Care Document ---
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 It does not include entries that were removed or entered in error. Problem Status Onset Date Problem Type Date of Resolution Comments Source Breast Mass Active 2 Condition Jun 06, 2002 Entered By: MAISHA LAWTON Comment: - right [facility] [place] Bursitis, Subacromial (ICD-9-CM 726.19) Active Condition [facility] CERVICALGIA Active Condition [facility] Contraceptive Mangmt Active Condition [facility], [facility] OTHER SPEC EXAM Active Condition [facility] Unspecified site of sprain and strain (ICD-9-CM 848.9) Active Condition [facility] CYSTITIS ACUTE Inactive Condition resolved DoD CONJUNCTIVITIS CHRONIC ALLERGIC Active Condition This may be a contact allergic reaction from the hands. Possibly from nail bolivian which she was wearing around the time that the rash was worse. DoD RHINITIS VASOMOTOR Active Condition [facility] URTICARIA IDIOPATHIC Active Condition Do[facility] INJURY DUE TO UNDETERMINED INTENT Active Condition [facility] CONTUSION WITH INTACT SKIN SURFACE Inactive Condition [facility] CONTUSION WITH INTACT SKIN SURFACE - FOOT RIGHT MEDIAL SURFA Inactive Condition [facility] POLYCYSTIC OVARIAN SYNDROME Active Condition [facility] Patient Ed Facilitate Preg Discuss Timing Of Peak Fertility Inactive Condition [facility] ROUTINE PELVIC EXAM Inactive Condition history of irreg menses - family history of DM. Routine screening lipids DoD Diagnosis: ICD-10-CM H25.813 Combined forms of age-related cataract, bilateral Active Diagnosis [facility] Diagnosis: ICD-10-CM Z71.89 Other specified counseling Active Diagnosis [facility] Diagnosis: ICD-10-CM Z65.9 Problem related to unspecified psychosocial circumstances Active Diagnosis [facility] Diagnosis: ICD-10-CM H04.123 Dry eye syndrome of bilateral lacrimal glands Active Diagnosis [facility] Medications Combined list of outpatient medications from Department of Defense and Veterans Affairs facilities.Medications provided include 1) outpatient medications from the last 15 months, and 2) patient-reported medications. Medication Details Route Status Patient Instructions Prescription Expires Prescription Number Last Dispense Date Ordering Provider Order Date Order Qty Source ALPRAZOLAM (ALPRAZOLAM ), 0.5MG, TABLET, ORAL, [employer] 1000 ea. BOTTLE Cancele d [id number] : 2023 0 Pharmac y Data Transac tion Service Facilit y ALPRAZOLAM (ALPRAZOLAM ), 1MG, TABLET, ORAL, SANDOZ, 500 ea. BOTTLE Active [id number] 4 2023 1 Pharmac y Data Transac tion Service Facilit y ALPRAZOLAM (ALPRAZOLAM ), 1MG, TABLET, ORAL, SANDOZ, 500 ea. BOTTLE Active [id number] 4 2023 1 Pharmac y Data Transac tion Service Facilit y ALPRAZOLAM (ALPRAZOLAM ), 1MG, TABLET, ORAL, SANDOZ, 500 ea. BOTTLE Active [id number] 4 2023 1 Pharmac y Data Transac tion Service Facilit y ALPRAZOLAM (ALPRAZOLAM ), 1MG, TABLET, ORAL, SANDOZ, 500 ea. BOTTLE Active [id number] 4 2023 1 Pharmac y Data Transac tion Service Facilit y ALPRAZOLAM (ALPRAZOLAM ), 1MG, TABLET, ORAL, SANDOZ, 500 ea. BOTTLE Active [id number] 4 2023 1 Pharmac y Data Transac tion Service Facilit y ALPRAZOLAM (ALPRAZOLAM ), 1MG, TABLET, ORAL, SANDOZ, 500 ea. BOTTLE Active [id number] 4 2023 1 Pharmac y Data Transac tion Service Facilit y ALPRAZOLAM (ALPRAZOLAM ), 1MG, TABLET, ORAL, SANDOZ, 500 ea. BOTTLE Active [id number] 4 2023 1 Pharmac y Data Transac tion Service Facilit y AMOXICILLIN (AMOXICILLI N), 875MG, TABLET, ORAL, [employer], 100 ea. BOTTLE Active [id number] 4 2023 16 Pharmac y Data Transac tion Service Facilit y CYCLOBENZAP RINE HCL (cyclobenza danae HCl), 10 MG, TABLET, ORAL, [employer], 1000 ea. BOTTLE Cancele d [id number] : 2023 0 Pharmac y Data Transac tion Service Facilit y CYCLOBENZAP RINE HCL (cyclobenza danae HCl), 10 MG, TABLET, ORAL, [employer], 1000 ea. BOTTLE Cancele d [id number] : 2023 0 Pharmac y Data Transac tion Service Facilit y IRBESARTAN- HYDROCHLORO THIAZIDE (IRBESARTAN /HYDROCHLOR OTHIAZIDE), 300-12.5MG, TABLET, ORAL, D[employer]ARMA, 30 ea. BOTTLE Active [id number] 4 2023 90 Pharmac y Data Transac tion Service Facilit y PROPYLENE GLYCOL 0.6% SOLN,OPH INSTILL 1 DROP IN BOTH EYES FOUR TIMES A DAY NEEDED FOR DRY EYE(S) OPHTHA LMIC ACTIVE 04/21/2025 [id number] SA DANNIE KIM 2023 30 [facility] Allergies, Adverse Reactions, Alerts Combined list of allergies from Department of Defense and Veterans Affairs facilities. It does not include entries that were removed or entered in error. Substance Category Reaction Severity Reaction type Status Date Reported Comments Source No Known Allergies Drug allergy (disorder) active 08/07/2007 [facility] Immunizations Combined list of available immunizations from the Department of Defense and Veterans Affairs facilities. 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 Comments Source COVID-19, mRNA, LNP-S, PF, 30 mcg/0.3 mL dose 2021 [facility], () Not Given COVID-19, mRNA, LNP-S, PF, 30 mcg/0.3 mL dose DoD influenza, injectable, quadrivalent, preservative free 2021 ALUL, () Not Given influenza , injectabl e, quadrival ent, preservat aung free DoD COVID-19 (PFIZER), MRNA, LNP-S, PF, 30 MCG/0.3 ML DOSE 2 2020 208 complet ed PFR; [id number]; 1 [facility] COVID-19 (PFIZER), MRNA, LNP-S, PF, 30 MCG/0.3 ML DOSE 1 2020 208 complet ed PFR; [id number]; 1 [facility] Influenza, injectable, MDCK, preservative free, quadrivalent 2019 ALUL, () Not Given Influenza , injectabl e, MDCK, preservat aung free, quadrival ent DoD hepatitis B vaccine, adult dosage 0 2003 43 () Not Given hepatitis B vaccine, adult dosage DoD measles, mumps and rubella virus vaccine 0 2003 03 () Not Given measles, mumps and rubella virus vaccine DoD varicella virus vaccine 0 2003 21 () Not Given varicella virus vaccine DoD tuberculin skin test; purified protein derivative solution, intradermal 1 2003 Unknown, Provider [id number] Sanofi Pasteur (PMC) complet ed tuberculi n skin test; purified protein derivativ e solution, intraderm al DoD INFLUENZA, UNSPECIFIED FORMULATION 2002 88 complet ed [facility] [place] [facility] INFLUENZA, WHOLE 2001 ROBBIE BAÑUELOSARA K 16 complet ed [facility] [place] [facility] Encounters Combined list of: 1) Encounters from Department of Veterans Affairs facilities going backup to the last 18 months, not all VA inpatient encounters are included; 2) Encounters from the Department of Defense facilities going backup to 280 months. Location Location Details Encounter Type Encounter Number Reason For Visit Attending Provider ADM Date DC Date Status Disposition Source [address] [place] [address] Lavell CUETO ([facility]Sco tt [facility] Tm Blue) OUTPATIENT [id number] pap smear DEXTER PENDLETON 11/14 Released w/o Limitations [address] [place] [address] Lavell CUETO ([facility])(S cott [facility] Tm Blue) [address] [place] [address] Lavell CUETO ([facility])(Sco tt [facility] Tm Blue) TELE CONSULT [id number] follow up labs DEXTER PENDLETON 11/[address] [place] [address])(S jovanny [facility] Tm Blue) [place]([facility]) OUTPATIENT [id number] COMPUTE R FELL ON R [place] 11/03 Immediate Referral [place]([facility]) [address] [place] [address] Lavell [facility])(All ergy Resource Sharing) OUTPATIENT [id number] [place] entered the order JAYNE NELSON 01/13 Released w/o Limitations [address] [place] [address] Lavell [facility])(A llergy Resourc e Sharing ) [address] [place] [address] Lavell [facility])(All ergy Resource Sharing) TELE CONSULT [id number] lab results JAYNE NELSON 01/[address] [place] [address] Lavell [facility])(A llergy Resourc e Sharing ) [address] [place] [address] Lavell [facility])(All ergy Resource Sharing) OUTPATIENT [id number] f/u hives/u ti JAYNE NELSON 02/16 Released w/o Limitations [address] [place] [address] Lavell [facility])(A llergy Resourc e Sharing ) [address] [place] [address])(All ergy Resource Sharing) TELE CONSULT [id number] negativ e urine culture JAYNE NELSON 02/[address] [place] [address])(A llergy Resourc e Sharing ) [address] [place] [address])(Thread Reeler ecology) OUTPATIENT [id number] [place] entered the order RADHA BRICEÑO 07/07 Released w/o Limitations [address] [place] [address])(Lety cook gy) [facility] OFFICE O/P EST MOD 30 MIN [id number] Diagnos is: ICD-10- CM H04.123 Dry eye syndrom e of bilater al lacrima l glands CESAR BLACKBURN THI 06/29 [facility] Outpatient Encounter [id number] 07/30 [facility] HC PRO PHONE CALL 11-20 MIN [id number] Diagnos is: ICD-10- CM Z65.9 Problem related to unspeci fied psychos ocial circums tanCAROLINA Verduzco 08/02 [facility] Outpatient Encounter [id number] 10/17 [facility] Outpatient Encounter [id number] BAUDILIO CALDERON A A 10/26 [facility] [id number] Diagnos is: ICD-10- CM Z71.89 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 Procedure Procedure Type Code Date Perfomer Comments Sourc e Allergy Percutaneous tests - allergenic extracts 01/13/2007 JAYNE GONZALEZ [facility] PERCUTANEOUS TESTS (SCRATCH, PUNCTURE, PRICK) WITH ALLERGENIC EXTRACTS, IMMEDIATE TYPE REACTION, INCLUDING TEST INTERPRETATION AND REPORT, SPECIFY NUMBER OF TESTS 01/13/2007 [facility] COMPUTERIZED AXIAL TOMOGRAPHY OF HEAD 02/11/1996 [facility] VACUUM EXTRACTION WITH EPISIOTOMY 02/11/1996 [facility] EKG (SCALP) 02/11/1996 [facility] NONINVASIVE EAR OR PULSE OXIMETRY FOR OXYGEN SATURATION; SINGLE DETERMINATION 04/05/2001 [facility] INSERTION OF INTRAUTERINE DEVICE (IUD) 09/23/2000 [facility] ULTRASOUND, PELVIC (NONOBSTETRIC), REAL TIME WITH IMAGE DOCUMENTATION; COMPLETE 09/15/2000 [facility] PSYCHIATRIC DIAGNOSTIC INTERVIEW EXAMINATION 09/15/2000 [facility] COLLECTION OF VENOUS BLOOD BY VENIPUNCTURE 09/01/2000 [facility] HANDLING AND/OR CONVEYANCE OF SPECIMEN FOR TRANSFER FROM THE OFFICE TO A LABORATORY 08/05/2000 [facility] D UNLISTED THERAPEUTIC, PROPHYLACTIC OR DIAGNOSTIC INJECTION 06/08/2000 [facility] HANDLING AND/OR CONVEYANCE OF SPECIMEN FOR TRANSFER FROM THE OFFICE TO A LABORATORY 05/17/2000 [facility] CULTURE, PRESUMPTIVE, PATHOGENIC ORGANISMS, SCREENING ONLY, BY COMMERCIAL KIT (SPECIFY TYPE); MULTIPLE ORGANISMS 03/03/2000 [facility] CULTURE, PRESUMPTIVE, PATHOGENIC ORGANISMS, SCREENING ONLY, BY COMMERCIAL KIT (SPECIFY TYPE); MULTIPLE ORGANISMS 02/24/2000 [facility] Social History Combined list of available smoking, tobacco, and other social history from Department of Defense and Veterans Affairs facilities. Social History Type Response Date Comment Sourc e This section is an empty social history section. DoD Plan of Care List of future care activities from Department of Veterans Affairs facilities. Additional future care activities may be listed in the Assessment and Plan section. Date/Time Care Activity Care Activity Detail Facili ty 04/12/2025 AMBULATORY - SURGERY AMBULATORY - SURGERY [facility]
--- OUTSIDE RECORDS SUMMARY | 2024-11-26 09:43 | XMS_ITS | Encounter Summary ---
Author Name [facility] Organization [facility] [place] [facility] [place] Address [address] [place] [address] Support Name Relationship Address Phone FITZ THOMPSON Next of Kin [address] [facility], [address] FITZ THOMPSON Emergency Contact [address] [facility], [address] Insurance Providers: All historical and current Section Date Range: From patient's date of to the date document was created. This section includes the names of all active insurance providers for the patient. Insurance Provider Type of Coverage Plan Name Start of Policy Coverage End of Policy Coverage Group Number Member ID Insurance Provider's Telephone Number Policy Elias's Name Patient's Relationship to Policy Elias RUKHSANA ([id number])RX PRESCRIPT ION [facility] Jun 27, 2017 [id number] [phone] JAY,A PRIL PATIENT GEHA-UHI PREFERRED PROVIDER ORGANIZAT ION (PPO) [facility] Jun 27, 2017 [id number] [facility] JAY,A PRIL PATIENT GEHA-UHI PREFERRED PROVIDER ORGANIZAT ION (PPO) [facility] Jun 27, 2017 [id number] [facility] JAY,A PRIL PATIENT EAST NON-V ETERA N SELEC T Jun 21, 2017 NON-VET MARIA D [id number] JAY MARTINIFITZ SPOUSE EAST NON-V ETERA N SELEC T Jun 21, 2017 NON-VET MARIA D [id number] FITZ THOMPSON JR SPOUSE [facility] 2017 PRIME Apr 11, 2018 PRIME [id number] Kenji THOMPSON PRIL SPOUSE [facility] 2024 PRIME WNR Jun 21, 2024 PRIME [id number] FITZ THOMPSON JR SPOUSE Selected Encounter This section includes the information on record at [place] for the Encounter. Date/Time Encounter Type Encounter Description Reason Provider Source Apr 19, 2024 03:00 PM COMPRE OPH EXAM EST PT 1/> OPTOMETRY ICD-10-CM H25.813 Combined forms of age-related cataract, bilateral MARGARETTE KIM Encounter Template Text not used by VA Assessments - Encounter Diagnoses This section includes the primary and secondary diagnoses documented for the Encounter. Date/Time Primary/Secondary Diagnosis Diagnosis Name Provider Source Apr 27, 2024 05:19 AM PRIMARY Combined forms of age-related cataract, bilateral MARGARETTE KIM [facility] Apr 27, 2024 05:19 AM SECONDARY Dry eye syndrome of bilateral lacrimal glands MARGARETTE KIM [facility] Apr 27, 2024 05:19 AM SECONDARY Presbyopia MARGARETTE KIM [facility] Encounter Notes: All associated encounter notes This section contains the clinical notes associated to the Encounter. Date/Time Encounter Note(s) Provider Source Apr 19, 2024 02:36 PM OPTOMETRY NOTE: LOCAL TITLE: OPTOMETRY NOTE STANDARD TITLE: OPTOMETRY NOTE DATE OF NOTE: APR 19, 2024@14:36 ENTRY DATE: APR 19, 2024@14:36:26 AUTHOR: ISIS KIM EXP COSIGNER: URGENCY: STATUS: COMPLETED Last seen: 06/29/23 CC: 1. Vision OD continues to be hazy - longstanding, but worse since last visit - feels like OD is off, like a cloud over vision - worse with night driving/oncoming headlights Ocular meds: Systane prn Ocular ROS: No history of ocular surgeries/injuries/lasers 1. Dry Eye, OU 2. Cataracts, OU Family OcHX: (-) blindness (+) glaucoma - father (-) AMD (-) RD Cardiovascular ROS: no change from problem & medication lists CPRS Problem list, medications and allergies reviewed: CPRS Serology for Diabetes No GLUCOSE EO data found No HEMOGLOBIN A1C EO data found Cardiovascular BP: 116/74 (10/20/1998 22:53) Pulse: 74 (10/20/1998 22:53) Neuro: Orientation: Normal Psych: Mood/Affect: Normal Depression/suicide ideation: NO VISUAL ACUITY Distance Visual Acuity (cc) OD: 20/30+ PH: 20/20 slow OS: 20/20- Pupils PERRL OU (-)APD Confrontation: FTFC OU Extra-Ocular Muscles Full OU Habitual OD: +0.50 -0.50 x090 OS: +1.00 -0.25 x155 Add: +1.50 Auto-refraction today OD: +0.75 -0.50 x048 OS: +1.50 -0.25 x145 Refraction OD: +0.75 -0.50 x090 20/20- slow OS: +1.00 sph 20/20 Add: +1.50 *TF acceptance and preference vs habitual Externals/adnexa: Unremarkable OU SLIT LAMP EXAMINATION OU Lids/Lashes/Lacrimal clean Conjunctiva/Sclera white/quiet Cornea clear Ant Chamber deep and quiet Iris flat, normal Lens OD bare NS, 1-2+ cortical, diffuse anterior capsular haze (~2/3 of ant surface) OS bare NS, 1-2+ cortical Intraocular Pressures (Goldmann) 1 gtt Fluress OU Date OD OS Time Meds 04/19/24 14 14 1500 none DILATED INTERNAL OU - pt understands side effects associated with dilation 1 gtt 1% tropicamide OU @ 1500 Optic Nerve 0.1 pink and healthy Vessels 2/3 Macula flat, clear Periphery flat and intact 360 Vitreous (-)PVD Assessment and Plan 04/19/24 1. Cataracts, OD>OS - OD appears progressed from last visit, OS stable - BCVA presurgical, however pt is quite symptomatic OD - decreased vision quality and ++glare - Discussed findings with pt. Will try new specs first, ordered [employer] to be mailed as she does a lot of night driving - Pt to call if symptoms persist, may return for glare/BAT testing 2. Dry Eye, OU - Continue Systane Balance T-QID OU and warm compresses 3. Refractive Error with Presbyopia, OU - New SRx released, consult placed for updated PAL today Pt edu on all findings and given the opportunity to have questions answered RTC 1 year, sooner prn Suicide Screen - V: C-SSRS Screening Taliaferro-Suicide Severity Rating Scale (C-SSRS Screener) 1. Over the past month, have you wished you were or wished you could go to sleep and not wake up? No 2. Over the past month, have you had any actual thoughts of killing yourself? No 3. Over the past month, have you been thinking about how you might do this? Response not required due to responses to other questions. 4. Over the past month, have you had these thoughts and had some intention of acting on them? Response not required due to responses to other questions. 5. Over the past month, have you started to work out or worked out the details of how to kill yourself? Response not required due to responses to other questions. 6. If yes, at any time in the past month did you intend to carry out this plan? Response not required due to responses to other questions. 7. In your lifetime, have you ever done anything, started to do anything, or prepared to do anything to end your life (for example, collected pills, obtained a gun, gave away valuables, went to the roof but didn't jump)? No 8. If YES, was this within the past 3 months? Response not required due to responses to other questions. /iram/ ISIS KIM OD MAORI PHYSIOTHERAPIST Signed: 04/20/2024 08:49 ISIS KIM [facility]
--- OUTSIDE RECORDS SUMMARY | 2024-11-26 09:43 | XMS_ITS ---
Author Organization [facility] Address [address] [place], [place] [id number] Care Team Providers Care Secure Software Assessor Name Role Phone ONELIA LOPES Primary Care Provider Marilu Marie Unavailable [phone] ALLERGIES No Known Allergies RESULTS Component Value Reference Range Notes Complement C4, Serum Reviewed date:09/29/2024 12:32:08 PM Interpretation: Performing Lab:[facility] [employer], [facility] [employer] [place] [facility], Phone - [phone], Director - PhDElla Notes/Report: Complement C4, Serum 68 12-38 mg/dL T4 Free Reviewed date:09/29/2024 12:31:42 PM Interpretation: Performing Lab:[employer] [employer], [facility] [place] [address], Phone - [phone], Director - Hayden Notes/Report: T4,Free(Direct) 1.20 0.82-1.77 ng/dL Aldolase Reviewed date:09/29/2024 12:31:53 PM Interpretation: Performing Lab:[employer], [address] [employer] [address] [facility], [place], Phone - [phone], Director - Hayden Notes/Report: Aldolase 5.4 3.3-10.3 U/L TSH Reviewed date:09/29/2024 12:32:02 PM Interpretation: Performing Lab:[employer], [address] [facility], [place], Phone - [phone], Director - PhDDaniellei Notes/Report: TSH 2.040 0.450-4.500 uIU/mL CBC With Differential/Platel et Reviewed date:09/29/2024 03:06:39 PM Interpretation: Performing Lab:[facility] [place], [address] [place] [address], Phone - [phone], Director - [facility] Notes/Report: WBC 4.9 3.4-10.8 x10E3/uL RBC 4.91 [...] Westergren Reviewed date:09/29/2024 12:56:22 PM Interpretation: Performing Lab:[facility] [place], [address] [place] [address], Phone - [phone], Director - Hayden Notes/Report: Sedimentation Rate-Westergren 12 0-40 mm/hr Complement C3, Serum Reviewed date:09/29/2024 12:31:56 PM Interpretation: Performing Lab:[facility] [place], [address] [place] [address], Phone - [phone], Director - Hayden Notes/Report: Complement C3, Serum 187 82-167 mg/dL Rheumatoid Arthritis Factor Reviewed date:09/29/2024 12:32:04 PM Interpretation: Performing Lab:[facility], Phone - [phone], Director [facility] Notes/Report: Rheumatoid Factor (RF) <10.0 <14.0 IU/mL C-Reactive Protein, Quant Reviewed date:09/29/2024 12:56:27 PM Interpretation: Performing Lab:[facility] [address] [place] [address], Phone - [phone], [facility] Notes/Report: C-Reactive Protein, Quant 8 0-10 mg/L Thyroid Peroxidase and Antit hyroglobunlin Antibodies Reviewed date:09/29/2024 12:31:47 PM Interpretation: Performing Lab:[facility] [address] [place] [address], Phone - [phone], [facility] Notes/Report: Thyroid Peroxidase (TPO) Ab 16 0-34 IU/mL Thyroglobulin Antibody <1.0 0.0-0.9 IU/mL Thyroglobulin Antibody measured by [employer] . It should be noted that the presence of thyroglobulin antibodies may not be pathogenic nor diagnostic, especially at very low levels. The assay storeroom clerk has found that four percent of individuals without evidence of thyroid disease or autoimmunity will have positive TgAb levels up to 4 IU/mL. HLA B 27 Disease Association Reviewed date:09/29/2024 12:32:06 PM Interpretation: Performing Lab:[facility] [address] [place] [address], Phone - [phone], Director [facility] Notes/Report: HLA-B27 Negative HLA-B*27 Negative B27 allele interpretation for all loci based on IMGT/HLA database version 3.58 This test was developed and its performance characteristics determined by [employer]. It has not been cleared or approved by the Food and Drug Administration. The FDA has determined that such clearance or approval is not necessary. HLA Lab CLIA ID Number [id number] This test was performed using Polymerase Chain Reaction (PCR) and Sequence Specific Oligonucleotide Probes (SSOP) technique. Sequence Based Typing (SBT) may be used as a supplemental method when necessary. If you have questions, please call [employer] customer service at or email at [email or web address] CCP IgG Antibodies Reviewed date:09/29/2024 12:31:51 PM Interpretation: Performing Lab:[address], Phone - [phone], Director - [facility] Notes/Report: Anti-CCP Ab, IgG/IgA 6 0-19 units Negative <20 Weak positive 20 - 39 Moderate positive 40 - 59 Strong positive >59 Comp. Metabolic Panel (14) Reviewed date:09/29/2024 03:06:34 PM Interpretation: Performing Lab:[facility], [address] [place] [address], Phone - [phone], Director - [facility] Notes/Report: Glucose 99 70-99 mg/dL BUN 20 [...] Radha+SjoSSB) Reviewed date:09/29/2024 02:07:03 PM Interpretation: Performing Lab:[facility], [address] [place] [address], Phone - [phone], Director - [facility] Notes/Report: SHAKILA by IFA Rfx Titer/Pattern Negative Negative <1:80 Borderline 1:80 Positive >1:80 ICAP nomenclature: AC-0 For more information about Hep-2 cell patterns use ANApatterns.org, the official website for the International Consensus on Antinuclear Antibody (SHAKILA) Patterns (ICAP). GAS APPLIANCE REPAIRER Antibodies <0.2 0.0-0.9 AI Maciel Antibodies <0.2 0.0-0.9 AI Antiscleroderma-70 Antibodies <0.2 0.0-0.9 AI Sjogren's Anti-SS-A <0.2 0.0-0.9 AI Sjogren's Anti-SS-B <0.2 0.0-0.9 AI VITAMIN B12 Reviewed date:09/29/2024 12:31:58 PM Interpretation: Performing Lab:[facility], [address] [place] [address], Phone - [phone], Director - [facility] Notes/Report: Vitamin B12 281 315-9891 pg/mL DS DNA-CRITHIDIA IFA W/REFLE X TO TITER-[facility] Reviewed date:09/29/2024 12:31:43 PM Interpretation: Performing Lab:[facility] [place], [address] [facility], Phone - [phone], Director - [facility] Notes/Report: dsDNA Crithidia luciliae IFA Negative Negative REASON FOR VISIT +SHAKILA MEDICATIONS Medication SIG (Take, Route, Frequency, Duration) Notes Start Date End Date Status diclofenac PRN Active bumetanide 1 mg 1 tab(s) orally once a day Active irbesartan 300 mg 1 tab(s) orally once a day Active cyclobenzaprine PRN Acti ve potassium 20meq Active Tylenol 8 Hour 650 mg 2 tab(s) orally ev monroe 8 hours Active Motrin IB 200 mg 1 cap(s) orally ever y 6 hours Active hydroCHLOROthiazide 25 mg 1 tab(s) orally once a day Active PROBLEMS Problem Type ICD Code Onset Dates Problem Status W/U Status Risk SNOMED Code Notes Problem Paresthesia (R20.2) Active confirmed 09297110 VITAL SIGNS BMI 45.09 kg/m2 09/20/2024 Blood pressure systolic 137 mm Hg 09/21/19 25 Blood pressure diastolic 75 mm Hg 025 Heart Rate 83 /min 09/20/2024 Height 65 in 09/20/2024 Weight 271 lbs 09/20/2024 Encounters Encounter Location Date Provider Diagnosis [facility] [address] [place], [place] [id number] 09/20/2024 Marilu Coleman Polyarthralgia M25.5 0 ; SHAKILA positive R76.8 ; Myalgia M79.10 ; Paresthesia R20.2 and Dorsalgia, unspecified M54.9 ASSESSMENTS Encounter Date Diagnosis Assessment Notes Treatment Notes Treatment Clinical Notes Section Notes 09/20/2024 Polyarthralgia (ICD-10 - M25.50) Several complaints with reportedly positive SHAKILA- check additional labs to evaluate for an underlying inflammatory arthritis or CTD. Review imaging done by ortho/pain mgmnt. Reviewed patients health history forms 09/20/2024 SHAKILA positive (ICD-10 - R76.8) Several complaints with reportedly positive SHAKILA- check additional labs to evaluate for an underlying inflammatory arthritis or CTD. Review imaging done by ortho/pain mgmnt. Reviewed patients health history forms 09/20/2024 Myalgia (ICD-10 - M79.10) Several complaints with reportedly positive SHAKILA- check additional labs to evaluate for an underlying inflammatory arthritis or CTD. Review imaging done by ortho/pain mgmnt. Reviewed patients health history forms 09/20/2024 Paresthesia (ICD-10 - R20.2) Several complaints with reportedly positive SHAKILA- check additional labs to evaluate for an underlying inflammatory arthritis or CTD. Review imaging done by ortho/pain mgmnt. Reviewed patients health history forms 09/20/2024 Dorsalgia, unspecified (ICD-10 - M54.9) Several complaints with reportedly positive SHAKILA- check additional labs to evaluate for an underlying inflammatory arthritis or CTD. Review imaging done by ortho/pain mgmnt. Reviewed patients health history forms PLAN OF TREATMENT Medication Medication Name Sig Start Date Stop Date Notes diclofenac PRN bumetanide 1 mg 1 tab(s) orally once a day irbesartan 300 mg 1 tab(s) orally once a day cyclobenzaprine PRN potassium 20meq Tylenol 8 Hour 650 mg 2 tab(s) orally every 8 hours Motrin IB 200 mg 1 cap(s) orally every 6 hours hydroCHLOROthiazide 25 mg 1 tab(s) orally once a day Next Appt Details Follow Up: 2 Weeks with KETTLE COORDINATOR, Reason: Progress Notes * Examination Category Sub-Category Detail Notes Category Not es Rheumatology Cervical Spine paracervical spasm, TTP Lumbar spine: paralumbar spasm, TT P Thoracic Spine: normal Sacroiliac: normal Fibromyalgia Tender Points: 02/05 General Constitutional: No acute distress HEENT: PERRLA, Neck supple, Normal sclerae and conjunctivae Cardiovascular RSR, No murmurs, Nor mal peripheral pulsations, No edema Lungs: clear to ausculation Abdomen: soft, no organomegal y or masses /Rectal: not done Skin: No cutaneous lesions . No subcutaneous nodules noted in the 4 extremities Neurological: No focal neurologica l findings Heme/Lymphatic: No cervical, axillar y, or inguinal adenopathy Psych: Alert, oriented x 3, Normal affect Musculoskeletal: Normal strength. No muscle atrophy Joint Exam Shoulders No swelling. No tenderness. NROM. Elbows No swelling. No tend erness. NROM. Wrists No swelling. No tend erness. NROM. Hips No tenderness, angel l ROM, no instability or deformity Knees No swelling, no tend erness, NROM. No instability or deformity Ankles No swelling, no tend erness, NROM., No instability or deformity. All MCPs No swelling, no tend erness, no deformity unless noted below. All PIPs No swelling, no tend erness, no deformity unless noted below. All DIPs No swelling, no tend erness, no deformity unless noted below. All MTPs No swelling, no tend erness, NROM, no deformity unless noted below. History and Physical Notes * HPI (History of Present Illness) Category Sub-Category Detail Notes Category Not es Rheumatology Joint pain She was referred by her PCP for evaluation of several issues and reportedly positive SHAKILA. She recalls being told she may have lupus around 2009 but more specific labs were negative. Likely her SHAKILA was positive at that time as well. She has a long hx of pain, malaise and fatigue. Generally feels not well. Will have episodes of increased sx's for no clear reason. Has had episodes of diffuse weakness, paresthesasis. Hx of recurrent rashes- has been called atopic dermatitis. Has seen Derm- rashes have been on her legs, jawline, ears, scalp, right eyelid. Rashes worse around her menstrual cycle. Has a long hx of neck and back pain- s/p cervical fusion surgery x2. Sees pain mgmnt for injections. Some numbness/tingling in her bilateral 5th fingers. Also has muscle pain- akira biceps/triceps and quads. Feels puffy. Eyes are dry. Hx of gout x2 in the past. Denies iritis, raynauds. No help with going gluten free in the past. Joint swelling Fever Dyspnea/SOB Cough Lymphadenopathy Chills fatigue morning stiffness 6 hours myalgias infection dry eyes dry mouth Raynaud's/ dicoloration of fingers muscle weakness digital ulcerations rash dysphagia photosensitivity Back pain History of gout Headaches Psoriasis Oral sores Iritis, conjuctivitis, uveiitis tendinitis Numbness or tingling Family History of Rheumatic Disease Alopecia chest pain Physical Examination Category Sub-Category Detail Notes Section Note s MDHAQ Summary Function (0-10):: 2.3 Pain (0-10):: 3.5 Patient Global Assessment of Disease Activity (0 -10):: 5 RAPID3 Score (0-30):: 10.8 Physician Global Assessment of Disease Activity (0-10):: 2 Prognosis Very Good w/o tx Erosive Damage No
--- OUTSIDE RECORDS SUMMARY | 2024-11-26 09:43 | XMS_ITS | Clinical Summary ---
Author Organization [facility] Address [address] [place] [id number] Care Team Providers Care Pump Installer Name Role Phone Chelle Elam MD Primary [...] on file Legal Sex Female 6:38 AM TELEPHONE LINES REPAIRER Gender Identity Not on file Sexual Orientation Not on file Obstetrics History Last Filed Vital Signs Vital Sign Reading Time Taken Comments Blood Pressure 168/100 05/22/2023 3:30 PM TELEPHONE LINES REPAIRER Pulse 80 05/22/2023 3:30 PM TELEPHONE LINES REPAIRER Temperature 36.8 C (98.2 F) 05/22/2023 1:36 PM TELEPHONE LINES REPAIRER Respiratory Rate 18 05/22/2023 3:30 PM TELEPHONE LINES REPAIRER Oxygen Saturation 100% 05/22/2023 3:30 PM TELEPHONE LINES REPAIRER Inhaled Oxygen Concentration - - Weight 108 kg (238 lb) 05/22/2023 1:36 PM TELEPHONE LINES REPAIRER Height 165.1 cm (5' 5) 05/22/2023 1:36 PM TELEPHONE LINES REPAIRER Body Mass Index 39.61 05/22/2023 1:36 PM TELEPHONE LINES REPAIRER Plan of Treatment Health Maintenance Due Date Last Done Comments Breast Cancer Screening-Mammogram 1973 Cervical Cancer Screening 1973 Colon Cancer Screening-Colonoscopy 1973 Depression Screening 1973 Hepatitis C Screening 1973 DTaP/Tdap/Td Vaccine (1 - Tdap) 1984 Hepatitis B Screening 1991 Regular Well Visit/Exam 18-64 1991 Zoster Vaccine (1 of 2) 2023 Covid-19 Vaccine ( season) 2024 07/01/2021, 10/11/2020, 09/20/2020 Influenza Vaccine (Season Ended) 2025 07/01/2021, 03/21/2020, 04/07/2013, Additional history exists Pneumococcal vaccine <65 Aged Out 04/07/2013 No longer eligible based on patient's age to complete this topic Medical Devices Implanted Type Area Dentist Private Practice Device Identifier Shelf Expiration Date Model / Serial / Lot Angio-Seal Vip 6fr Closere Device [id number] - [id number] Implanted:Qty: 1 on 11/24/2021 by Shawn Mars MD at [facility] [id number] 08/18/2022 [id number] / / [id number] Insurance [facility] CLAIMS [facility] CLAIMS [facility] Advance Directives For more information, please contact: [phone] * Full Code (Latest Code Status on File) Date Activated Date Inactivated Comments 11/22/2021 10:19 PM 11/24/2021 11:16 PM Care Teams Pump Installer Relationship Specialty Start Date End Date Chelle Elam MD [address] [address] PCP - General Family Medicine 11/22/21
--- OUTSIDE RECORDS SUMMARY | 2024-11-26 09:43 | XMS_ITS ---
Author Organization [facility] 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 MEDICATIONS Medication SIG (Take, Route, Frequency, Duration) Notes Start Date End Date Status bumetanide 1 mg 1 tab(s) orally once a day Active potassium 20meq Active hydroCHLOROthiazide 25 mg 1 tab(s) orally once a day Active irbesartan 300 mg 1 tab(s) orally once a day Active cyclobenzaprine PRN Acti ve acetaminophen-codeine Active Motrin IB 200 mg 1 cap(s) orally ever y 6 hours Active predniSONE Active Tylenol 8 Hour 650 mg 2 tab(s) orally ev monroe 8 hours Active diclofenac PRN Active VITAL SIGNS BMI 46.92 kg/m2 10/04/2024 Blood pressure systolic 150 mm Hg 10/05/19 25 Blood pressure diastolic 66 mm Hg 025 Heart Rate 83 /min 10/04/2024 Height 65 in 10/04/2024 Weight 282 lbs 10/04/2024 Encounters Encounter Location Date Provider Diagnosis [facility] [address], [address] [place], [place] [id number] 10/04/2024 Irene Copeland Polyarthralgia M25.5 0 ; SHAKILA positive R76.8 ; Myalgia M79.10 ; Paresthesia R20.2 and Dorsalgia, unspecified M54.9 ASSESSMENTS Encounter Date Diagnosis Assessment Notes Treatment Notes Treatment Clinical Notes Section Notes 10/04/2024 Polyarthralgia (ICD-10 - M25.50) Several complaints with reportedly positive SHAKILA- Serologies with negative SHAKILA, SHAKILA panel, DsDNA, RF/CCP and HLA-B27. No evidence of CTD or inflammatory arthritis at this time. 10/04/2024 SHAKILA positive (ICD-10 - R76.8) Several complaints with reportedly positive SHAKILA- Serologies with negative SHAKILA, SHAKILA panel, DsDNA, RF/CCP and HLA-B27. No evidence of CTD or inflammatory arthritis at this time. 10/04/2024 Myalgia (ICD-10 - M79.10) Several complaints with reportedly positive SHAKILA- Serologies with negative SHAKILA, SHAKILA panel, DsDNA, RF/CCP and HLA-B27. No evidence of CTD or inflammatory arthritis at this time. 10/04/2024 Paresthesia (ICD-10 - R20.2) Several complaints with reportedly positive SHAKILA- Serologies with negative SHAKILA, SHAKILA panel, DsDNA, RF/CCP and HLA-B27. No evidence of CTD or inflammatory arthritis at this time. 10/04/2024 Dorsalgia, unspecified (ICD-10 - M54.9) Several complaints with reportedly positive SHAKILA- Serologies with negative SHAKILA, SHAKILA panel, DsDNA, RF/CCP and HLA-B27. No evidence of CTD or inflammatory arthritis at this time. PLAN OF TREATMENT Medication Medication Name Sig Start Date Stop Date Notes bumetanide 1 mg 1 tab(s) orally once a day potassium 20meq hydroCHLOROthiazide 25 mg 1 tab(s) orally once a day irbesartan 300 mg 1 tab(s) orally once a day cyclobenzaprine PRN acetaminophen-codeine Motrin IB 200 mg 1 cap(s) orally every 6 hours predniSONE Tylenol 8 Hour 650 mg 2 tab(s) orally every 8 hours diclofenac PRN Next Appt Details Follow Up: prn, Reason: Progress Notes * Examination Category Sub-Category [...] Notes Category Not es Rheumatology Joint pain Patient present s for scheduled rheumatology follow up. Joint swelling Fever Dyspnea/SOB Cough Lymphadenopathy Chills [...] Section Note s MDHAQ Summary Function (0-10):: PATIENT DID NOT COMPLE TE Pain (0-10):: PATIENT DID NOT COMPLETE Patient Global Assessment of Disease Activity (0-10):: PATIENT DID NOT COMPLETE RAPID3 Score (0-30):: COULD NOT SCORE PATIENT DID NOT COMPLETE ALL CATEGORIES Physician Global Assessment of Disease Activity (0-10):: 3 Prognosis Good w/tx Erosive Damage No
--- OUTSIDE RECORDS SUMMARY | 2024-11-26 09:43 | XMS_ITS | Referral Summary ---
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 Gender Identity Not on file Sexual Orientation Not on file Last Filed Vital Signs Vital Sign Reading Time Taken Comments Blood Pressure 168/100 05/22/2023 3:30 PM MEDICAL PLANNER Pulse 80 05/22/2023 3:30 PM MEDICAL PLANNER Temperature 36.8 C (98.2 F) 05/22/2023 1:36 PM MEDICAL PLANNER Respiratory Rate 18 05/22/2023 3:30 PM MEDICAL PLANNER Oxygen Saturation 100% 05/22/2023 3:30 PM MEDICAL PLANNER Inhaled Oxygen Concentration - - Weight 108 kg (238 lb) 05/22/2023 1:36 PM MEDICAL PLANNER Height 165.1 cm (5' 5) 05/22/2023 1:36 PM MEDICAL PLANNER Body Mass Index 39.61 05/22/2023 1:36 PM MEDICAL PLANNER Plan of Treatment Not on file Medical Devices Implanted Type Area Soil Surveyor Device Identifier Shelf Expiration Date Model / Serial / Lot Angio-Seal Vip 6fr Closere Device [id number] - [id number] Implanted:Qty: 1 on 11/24/2021 by Shawn Mars MD at [facility] [id number] 08/18/2022 [id number] / / [id number] Insurance [facility] CLAIMS [id number] [place] [address] CLAIMS [employer] Member Subscriber Plan / Payer (Ef fective 2023-Present) Name:Janett Thompson Relation to Subscriber:Self Name:Janett Thompson Payer ID:Not on file Group ID:Not on file Type:OTHER Address: [facility] [address] [facility] Advance Directives For more information, please contact: [phone] * Full Code (Latest Code Status on File) Date Activated Date Inactivated Comments 11/22/2021 10:19 PM 11/24/2021 11:16 PM Care Teams Ornamental Ironworking Supervisor Relationship Specialty Start Date End Date Chelle Elam MD [address] [facility] [address] [facility] [address] [place] [id number] PCP - General Family Medicine 11/22/21
[2024-11-26 09:47] VITALS: BP 169/82; PULSE 89; RESP 14; TEMP 36.6; O2SAT 97
[2024-11-26 10:03] LABS: BEDSIDEPREGUCG Negative (Negative)
[2024-11-26 10:12] LABS: Add Urine Microscopic? YES; Appearance Urine Clear (Clear); Bacteria Urine None Seen /hpf; Bilirubin Urine Negative (Negative); Blood Urine Negative (Negative); Color Urine Yellow (Yellow); Glucose Urine UA Negative (Negative); Ketones Urine Trace mg/dL (Negative); Leukocyte Esterase Ur Negative LEU/UL (Negative); Nitrate Urine Negative (Negative); Non Pathogenic Casts 0-2; Protein Urine Trace mg/dL (Negative); Specific Grav Ur 1.019 (1.001-1.035); Squamous Epithelial Cell Urine Occasional /hpf (Few); WBC Urine 0-5 /hpf (0-3)
--- NOTE | 2024-11-26 11:05 | ED_ITS ---
HPI - Abdominal Pain General Chief Complaint: Abdominal Pain Stated Complaint: LUQ abd. pain x5 weeks Time Seen by Provider: 11/26/24 11:05 Source: patient Mode of arrival: ambulatory Limitations: no limitations History of Present Illness HPI narrative: 49 years old female came to the ED by ambulance complaining of history of constipation for the last 5-6 weeks. On stool softener. Complaining of left abdominal pain intermittently got worse lately. History of cholecystectomy, hypertension. Patient does not smoke or drink or use drugs. She denies any fever, chills, nausea, vomiting or urinary symptoms. Related Data Home Medications ?Medication ?Instructions ?Recorded ?Confirmed ?Last Taken ?Type cyclobenzaprine 5 mg tablet 5 mg PO TID PRN 08/15/24 08/15/24 Unknown History Allergies Allergy/AdvReac Type Severity Reaction Status Date / Time No Known Allergies Allergy Verified 11/26/24 09:40 Review of Systems 2 Review of Systems: All systems reviewed & are unremarkable except as noted in HPI and below PMFSH Past Medical History Medical History (normal spontaneous vaginal delivery) Abnormal Papanicolaou smear of cervix with positive human papilloma virus (HPV) test History of cryo surgery Chlamydia 1994 Syphilis 1992 Anxiety Morbid (severe) obesity due to excess calories Constipation by delayed colonic transit Essential (primary) hypertension MDD (major depressive disorder), recurrent episode, moderate Mixed hyperlipidemia Osteoarthritis of spine with radiculopathy, cervical region Surgical History Surgical History H/O laparoscopy X2 for ectopic in 2004 and 2008 History of cholecystectomy History of fusion of cervical spine 3 surgeries 1 in 2012 and 2 in 2017 Family History Family History Father Hypertension Cerebrovascular accident Family history of diabetes mellitus in first degree relative Family history of premature coronary heart disease, Onset Age: 40 Family history of elevated blood lipids Family history of chronic obstructive pulmonary disease Mother Patient's mother is in good health Sibling Patient's brother is in good health Other Breast cancer Depression Diabetes mellitus Epilepsy Heart disease Social History Social History Social History: Smoking status: Never smoker Second hand tobacco smoke exposure: No Alcohol intake: current Drinks per week: 2 Alcohol use details: COCKTAILS/WINE Substance use: never Substance use type: does not use Do You Feel Safe in your Home?: Yes Lack of Transportation: No Lack of Food: Never True Current Housing: I Have Housing Concerned About Future Housing: No Difficulty Paying Gas/Electric Bills: No Difficulty Paying for Meds: No Currently Unemployed: No Education: Decline to Answer Difficulty w/ Childcare or Family Care: No Living arrangements: with family Occupation/Education: occupation 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 Gender identity (if verbalized by the patient): Female Sexual Orientation (if Verbalized by the Patient): Straight or Heterosexual Spiritual care concerns: No Exam 2 Narrative: General appearance: Well-developed, well-nourished Skin: Normal color Head: Normocephalic, nontraumatic Eyes: Clear conjunctiva ENT: Oropharynx normal, ears normal, nose normal Neck: Supple, nontender Chest and respiratory: Airway patent, no respiratory distress, no accessory muscle use Heart: Regular rate/rhythm Abdomen: Soft, moderate tenderness epigastric and left upper quadrant,, no organomegaly, quiet bowel sounds Vascular: Normal peripheral pulses, normal capillary refill. Musculoskeletal: Normal range of motion, nontender back Neurologic: Alert and oriented ?3, MASS SPECTROSCOPIST is normal as tested, no gross motor deficit Course Vital Signs Vital signs: Vital Signs Temperature 36.6 C 11/26/24 09:47 Pulse Rate 89 11/26/24 09:47 Respiratory Rate 14 11/26/24 09:47 Blood Pressure 169/82 H 11/26/24 09:47 Pulse Oximetry 97 11/26/24 09:47 Temperature 36.6 C 11/26/24 09:47 Pulse Rate 88 11/26/24 14:39 Respiratory Rate 16 11/26/24 14:39 Blood Pressure 170/80 H 11/26/24 14:39 Pulse Oximetry 100 11/26/24 14:39 MDM - Abdominal Pain MDM Narrative Medical decision making narrative: Patient presents with epigastric and left abdominal pain Vital signs showing blood pressure 169/82 otherwise within normal limit Physical examination consistent with epigastric and left upper quadrant tenderness Differential diagnosis include pancreatitis, esophagitis, gastritis, diverticulitis, colitis, urinary tract infection Blood workup today includes CBC, CMP, lipase showed NO SIGNIFICANT ABNORMALITIES Urinalysis showed NO SIGNIFICANT ABNORMALITY CT abdomen and pelvis with IV contrast showed LEFT OVARIAN CYST 3.2 CM DIAGNOSIS ABDOMINAL PAIN OF UNKNOWN ETIOLOGY THE PT WAS DISCHARGED TO HOME.THE PT,S CONDITION UPON DISCHARGE WAS FAIR,EDUCATION WAS PROVIDED TO THE PT IN REFERENCE TO THE FINAL IMPRESSION,DISCHARGE STUDY RESULTS,TREATMENT,PROGNOSIS AND NEED FOR FOLLOW UP . Differential Diagnosis Differential diagnosis: Likely other ( ABOVE) Medical Records Attestation: I reviewed the patient's medical records. Lab Data Attestation: I reviewed the patient's lab results. 11/26/24 11:24 11/26/24 11:24 Labs: Lab Results 11/26/24 11/26/24 11/26/24 Range/Units 10:01 10:03 11:24 WBC 6.1 (4.5-10.0) K/mm3 RBC 4.51 (4.2-5.4) M/mm3 Hgb 12.5 (12.0-15.0) g/dL Hct 39.8 (37.0-47.0) % MCV 88.2 (80-100) fl MCH 27.7 (26-34) pg MCHC 31.4 L (32-36) g/dl RDW 14.2 (11.5-14.5) % Plt Count 314 (150-375) k/mm3 MPV 10.5 H (7.4-10.4) fl Immature Gran % (Auto) 0.3 (0-0.5) % Neut % (Auto) 52.3 (45.5-73.1) % Lymph % (Auto) 34.6 (18.3-44.2) % [place] % (Auto) 10.5 H (2.6-8.5) % Eos % (Auto) 1.3 (0-4.4) % Baso % (Auto) 1.0 (0.2-1.2) % Lymph # (Auto) 2.11 (0.9-3.2) K/mm3 [place] # (Auto) 0.6 (0.1-0.6) K/mm3 Eos # (Auto) 0.1 (0-0.3) K/mm3 Baso # (Auto) 0.1 (0.0-0.1) K/mm3 Abs Immat Gran (auto) 0.02 (0.00-0.031) K/mm3 Absolute Neuts (auto) 3.2 (1.3-6.7) K/mm3 Absolute Nucleated RBC 0.000 (0.0-0.012) K/mm3 Nucleated RBC % 0.0 (0.0-0.2) % Sodium 140 (137-145) mmol/L Potassium 3.8 (3.4-5.0) mmol/L Chloride 107 (98-107) mmol/L Carbon Dioxide 25 (22-30) mmol/L Anion Gap 8 (4-12) mmol/L BUN 8 (7-17) mg/dL Creatinine 0.86 (0.7-1.0) mg/dL Estim Creat Clear Calc 89 ml/min Estimated GFR > 60 (59 - ) Glucose 97 (65-110) mg/dL Calcium 9.1 (8.4-10.2) mg/dL Total Bilirubin 0.6 (0.2-1.3) mg/dL AST 30 (14-36) U/L ALT 17 (6-35) U/L Alkaline Phosphatase 88 (38-126) U/L Total Protein 7.9 (6.3-8.2) g/dL Albumin 4.1 (3.5-5.1) g/dL Lipase 21 L (23-300) U/L Urine Color Yellow (Yellow) Urine Appearance Clear (Clear) Urine pH 7.0 (5.0-9.0) Ur Specific [place] 1.019 (1.001-1.035) Urine Protein Trace (Negative) mg/dL Urine Glucose (UA) Negative (Negative) mg/dL Urine Ketones Trace H (Negative) mg/dL Ur Blood (Man) Negative (Negative) Urine Nitrate Negative (Negative) Urine Bilirubin Negative (Negative) Urine Urobilinogen 1.0 (<2.0) mg/dL Leukocyte Esterase Rfl Negative (Negative) JAKOB/UL Urine RBC 3-5 H (0-2) /hpf Urine WBC 0-5 (0-3) /hpf Ur Squamous Epith Cells Occasional (Few) /hpf Urine Bacteria None seen /hpf Urine Casts 0-2 POC Urine HCG, Qual Negative (Negative) Imaging Data Radiologist's impression: ITS Impressions Abdomen/Pelvis CT 11/26/24 12:33 Impression: 3.2 cm left ovarian cyst. No other significant findings. Critical Care Time Critical Care Time Critical Care Time: No Discharge Plan Discharge Clinical Impression: Abdominal pain, Ovarian cyst Patient Disposition: Home Condition: Stable Instructions: Ovarian Cyst (ED), Abdominal Pain (ED) Additional Instructions: RETURN IF SYMPTOMS ARE WORSENING , CALL YOUR FAMILY PHYSICIAN FOR APPOINTMENT, TAKE TYLENOL NEEDED FOR ACHES AND PAIN, CONTINUE HOME MEDICATIONS. Patient Language: Romanian Prescriptions: New dicyclomine 20 mg tablet 20 mg PO QID PRN (Reason: abdominal pain) Qty: 20 0RF No Action bumetanide 1 mg tablet 1 mg PO DAILY Qty: 100 0RF cyclobenzaprine 5 mg tablet 5 mg PO TID PRN Patient Comments: as per pain management cetirizine 10 mg tablet 10 mg PO DAILY PRN (Reason: allergy symptoms) Qty: 90 0RF clobetasol 0.05 % cream 1 applic topical DAILY Qty: 30 0RF potassium chloride [Klor-Con M20] 20 mEq tablet,ER particles/crystals 20 meq PO DAILY Qty: 90 1RF azelastine 137 mcg (0.1 %) aerosol,spray 1 spray intranasal Q12H Qty: 30 0RF Rx Instructions: administer into each nostril tramadol 50 mg tablet 50 mg PO Q6H PRN (Reason: pain) Qty: 120 0RF irbesartan 300 mg tablet 300 mg PO DAILY Qty: 90 0RF hydrochlorothiazide 25 mg tablet 25 mg PO DAILY Qty: 90 0RF ipratropium bromide 21 mcg (0.03 %) spray,non-aerosol 2 spray intranasal BID Qty: 30 0RF Rx Instructions: administer into each nostril diclofenac sodium 75 mg tablet,delayed release (DR/EC) 75 mg PO .QD PRN (Reason: pain) Qty: 90 0RF Follow-up/Referrals: Salvador Peraza MD [Primary Care Provider] -
--- OUTSIDE RECORDS SUMMARY | 2024-11-26 11:12 | XMS_ITS | Continuity of Care Document ---
Author Name [facility] Organization [facility] Care Team Providers Care Job Press Operator Name Role Phone [facility] Unavailable Unavailable Problems Combined list of problems from Department of Defense and Veterans Affairs facilities. It does not include entries that were removed or entered in error. Problem Status Onset Date Problem Type Date of Resolution Comments Source Breast Mass Active 2 Condition Jun 06, 2002 Entered By: MAISHA LAWTON Comment: - right [facility] Bursitis, Subacromial (ICD-9-CM 726.19) Active Condition [facility] CERVICALGIA Active Condition [facility] Contraceptive Mangmt Active Condition [facility], [facility] OTHER SPEC EXAM Active Condition [facility] Unspecified site of sprain and strain (ICD-9-CM 848.9) Active Condition [facility] CYSTITIS ACUTE Inactive Condition resolved [facility] CONJUNCTIVITIS CHRONIC ALLERGIC Active Condition This may be a contact allergic reaction from the hands. Possibly from nail martiniquais which she was wearing around the time that the rash was worse. DoD RHINITIS VASOMOTOR Active Condition [facility] URTICARIA IDIOPATHIC Active Condition [facility] INJURY DUE TO UNDETERMINED INTENT Active Condition [facility] CONTUSION WITH INTACT SKIN SURFACE Inactive Condition [facility] CONTUSION WITH INTACT SKIN SURFACE - FOOT RIGHT MEDIAL SURFA Inactive Condition [facility] POLYCYSTIC OVARIAN SYNDROME Active Condition [facility] Patient Ed Facilitate Preg Discuss Timing Of Peak Fertility Inactive Condition [facility] ROUTINE PELVIC EXAM Inactive Condition history of irreg menses - family history of DM. Routine screening lipids DoD Diagnosis: ICD-10-CM H25.813 Combined forms of age-related cataract, bilateral Active Diagnosis [facility] Diagnosis: ICD-10-CM Z71.89 Other specified counseling Active Diagnosis [facility] Diagnosis: ICD-10-CM Z65.9 Problem related to unspecified psychosocial circumstances Active Diagnosis [facility] Diagnosis: ICD-10-CM H04.123 Dry eye syndrome [...] Source ALPRAZOLAM (ALPRAZOLAM ), 0.5MG, TABLET, ORAL, [employer] 1000 ea. BOTTLE Cancele d [id number] : 2023 0 Pharmac y Data Transac tion Service Facilit y ALPRAZOLAM (ALPRAZOLAM ), 1MG, TABLET, ORAL, SANDOZ, 500 ea. BOTTLE Active [id number] 4 2023 1 Pharmac y Data Transac tion Service Facilit y ALPRAZOLAM (ALPRAZOLAM ), 1MG, TABLET, ORAL, SANDOZ, 500 ea. BOTTLE Active [id number] 4 2023 1 Pharmac y Data Transac tion Service Facilit y ALPRAZOLAM (ALPRAZOLAM ), 1MG, TABLET, ORAL, SANDOZ, 500 ea. BOTTLE Active [id number] 4 2023 1 Pharmac y Data Transac tion Service Facilit y ALPRAZOLAM (ALPRAZOLAM ), 1MG, TABLET, ORAL, SANDOZ, 500 ea. BOTTLE Active [id number] 4 2023 1 Pharmac y Data Transac tion Service Facilit y ALPRAZOLAM (ALPRAZOLAM ), 1MG, TABLET, ORAL, SANDOZ, 500 ea. BOTTLE Active [id number] 4 2023 1 Pharmac y Data Transac tion Service Facilit y ALPRAZOLAM (ALPRAZOLAM ), 1MG, TABLET, ORAL, SANDOZ, 500 ea. BOTTLE Active [id number] 4 2023 1 Pharmac y Data Transac tion Service Facilit y ALPRAZOLAM (ALPRAZOLAM ), 1MG, TABLET, ORAL, SANDOZ, 500 ea. BOTTLE Active [id number] 4 2023 1 Pharmac y Data Transac tion Service Facilit y AMOXICILLIN (AMOXICILLI N), 875MG, TABLET, ORAL, [employer], 100 ea. BOTTLE Active [id number] 4 2023 16 Pharmac y Data Transac tion Service Facilit y CYCLOBENZAP RINE HCL (cyclobenza danae HCl), 10 MG, TABLET, ORAL, [employer]CAR, 1000 ea. BOTTLE Cancele d [id number] : 2023 0 Pharmac y Data Transac tion Service Facilit y CYCLOBENZAP RINE HCL (cyclobenza danae HCl), 10 MG, TABLET, ORAL, [employer], 1000 ea. BOTTLE Cancele d [id number] : 2023 0 Pharmac y Data Transac tion Service Facilit y IRBESARTAN- HYDROCHLORO THIAZIDE (IRBESARTAN /HYDROCHLOR OTHIAZIDE), 300-12.5MG, TABLET, ORAL, [employer], 30 ea. BOTTLE Active [id number] 4 2023 90 Pharmac y Data Transac tion Service Facilit y PROPYLENE GLYCOL 0.6% SOLN,OPH INSTILL 1 DROP IN BOTH EYES FOUR TIMES A DAY NEEDED FOR DRY EYE(S) OPHTHA LMIC ACTIVE 04/21/2025 [id number] SA DANNIE KIM 2023 30 [facility] Allergies, Adverse Reactions, Alerts Combined list of allergies from Department of Defense and Veterans Affairs facilities. It does not include entries that were removed or entered in error. Substance Category Reaction Severity Reaction type Status Date Reported Comments Source No Known Allergies Drug allergy (disorder) active 08/07/2007 [facility] Immunizations Combined list of available immunizations from the Department of Defense and Veterans Affairs facilities. Immunization Series Date Given Administered By Site Reaction Lot Number CVX Code Drug Pediatric Audiologist Status Comments Source COVID-19, mRNA, LNP-S, PF, 30 mcg/0.3 mL dose 2021 ALUL, () Not Given COVID-19, mRNA, LNP-S, PF, 30 mcg/0.3 mL dose DoD influenza, injectable, quadrivalent, preservative free 2021 ALUL, () Not Given influenza , injectabl e, quadrival ent, preservat aung free DoD COVID-19 (PFIZER), MRNA, LNP-S, PF, 30 MCG/0.3 ML DOSE 2 2020 208 complet ed PFR; [id number]; 1 [facility] COVID-19 (PFIZER), MRNA, LNP-S, PF, 30 MCG/0.3 ML DOSE 1 2020 208 complet ed PFR; [id number]; 1 [facility] Influenza, injectable, MDCK, preservative free, [...] derivative solution, intradermal 1 2003 Unknown, Provider [id number] Sanofi Pasteur (PMC) complet ed tuberculi n skin test; purified protein derivativ e solution, intraderm al DoD INFLUENZA, UNSPECIFIED FORMULATION 2002 88 complet ed [facility] INFLUENZA, WHOLE 2001 ROBBIE BAÑUELOSARA K 16 complet ed [facility] Encounters [...] ADM Date DC Date Status Disposition Source [address] [place] [address] Lavell CUETO ([facility]Sco tt [facility] Tm Blue) OUTPATIENT [id number] pap smear DEXTER PENDLETON 11/14 Released w/o Limitations [address] [place] [address] Lavell CUETO ([facility])(S cott [facility] Tm Blue) [address] [place] [address] Lavell CUETO ([facility])(Sco tt [facility] Tm Blue) TELE CONSULT [id number] follow up labs DEXTER PENDLETON 11/[address] [place] [address])(S jovanny [facility] Tm Blue) General [place], [place]([facility]) OUTPATIENT [id number] COMPUTE R FELL ON R [place] 11/03 Immediate Referral [place], [place]([facility]) [address] [place] [address] Lavell [facility])(All ergy Resource Sharing) OUTPATIENT [id number] Pas entered the order JAYNE NELSON 01/13 Released w/o Limitations [address] [place] [address] Lavell [facility])(A llergy Resourc e Sharing ) [address] [place] [address] Lavell [facility])(All ergy Resource Sharing) TELE CONSULT [id number] lab results JAYNE NELSON 01/[address] [place] [address] Lavell [facility])(A llergy Resourc e Sharing ) [address] [place] [address] Lavell [facility])(All ergy Resource Sharing) OUTPATIENT [id number] f/u hives/u ti JAYNE NELSON 02/16 Released w/o Limitations [address] [place] [address] Lavell [facility])(A llergy Resourc e Sharing ) [address] [place] [address])(All ergy Resource Sharing) TELE CONSULT [id number] negativ e urine culture JAYNE NELSON 02/[address] [place] [address])(A llergy Resourc e Sharing ) [address] [place] [address])(Hydro Station Operator ecology) OUTPATIENT [id number] Pas entered the order RADHA BRICEÑO 07/07 Released w/o Limitations [address] [place] [address])(Lety cook gy) [facility] OFFICE O/P EST MOD 30 MIN [id number] Diagnos is: ICD-10- CM H04.123 Dry eye syndrom e of bilater al lacrima l glands CESAR BLACKBURN THI 06/29 [facility] Outpatient Encounter [id number] 07/30 [facility] HC PRO PHONE CALL 11-20 MIN [id number] Diagnos is: ICD-10- CM Z65.9 Problem related to unspeci fied psychos ocial circums tanCAROLINA Verduzco 08/02 [facility] Outpatient Encounter [id number] 10/17 [facility] Outpatient Encounter [id number] BAUDILIO CALDERON A A 10/26 [facility] [id number] Diagnos is: ICD-10- CM Z71.89 Other specifi ed addictions counselor DARIO Suarez 12/01 [facility] Outpatient Encounter [id number] CRISTINE MATIAS TTHEW C 02/10 [facility] [place] 1/ [id number] Diagnos is: ICD-10- CM H25.813 Combine d forms of age-rel ated madan mendosa SAV ANNAH R 04/19 [facility] Procedures Combined list of: 1) Procedures from Department of Veterans Affairs facilities going back up to thelast 18 months, not all VA non-surgical procedures are included; 2) All procedures from the Department of Defense facilities. Procedure Procedure Type Code Date Perfomer Comments Sourc e Allergy Percutaneous tests - allergenic extracts 01/13/2007 JAYNE GONZALEZ [facility] PERCUTANEOUS TESTS (SCRATCH, PUNCTURE, PRICK) WITH ALLERGENIC EXTRACTS, IMMEDIATE TYPE REACTION, INCLUDING TEST INTERPRETATION AND REPORT, SPECIFY NUMBER OF TESTS 01/13/2007 [facility] COMPUTERIZED AXIAL TOMOGRAPHY OF HEAD 02/11/1996 [facility] VACUUM EXTRACTION WITH EPISIOTOMY 02/11/1996 [facility] EKG (SCALP) 02/11/1996 [facility] NONINVASIVE EAR OR PULSE OXIMETRY FOR OXYGEN SATURATION; SINGLE DETERMINATION 04/05/2001 [facility] INSERTION OF INTRAUTERINE DEVICE (IUD) 09/23/2000 [facility] ULTRASOUND, PELVIC (NONOBSTETRIC), REAL TIME WITH IMAGE DOCUMENTATION; COMPLETE 09/15/2000 [facility] PSYCHIATRIC DIAGNOSTIC INTERVIEW EXAMINATION 09/15/2000 [facility] COLLECTION OF VENOUS BLOOD BY VENIPUNCTURE 09/01/2000 [facility] HANDLING AND/OR CONVEYANCE OF SPECIMEN FOR TRANSFER FROM THE OFFICE TO A LABORATORY 08/05/2000 [facility] UNLISTED THERAPEUTIC, PROPHYLACTIC OR DIAGNOSTIC INJECTION 06/08/2000 [facility] HANDLING AND/OR CONVEYANCE OF SPECIMEN FOR TRANSFER FROM THE OFFICE TO A LABORATORY 05/17/2000 Do [facility] CULTURE, PRESUMPTIVE, PATHOGENIC ORGANISMS, SCREENING ONLY, BY COMMERCIAL KIT (SPECIFY TYPE); MULTIPLE ORGANISMS 03/03/2000 [facility] CULTURE, PRESUMPTIVE, PATHOGENIC ORGANISMS, SCREENING [...] 04/12/2025 AMBULATORY - SURGERY AMBULATORY - SURGERY [facility]
--- OUTSIDE RECORDS SUMMARY | 2024-11-26 11:12 | XMS_ITS | Clinical Summary ---
Author Organization [facility] Address [address] [place] [id number] Care Team Providers Care Automotive Sales Executive Name Role Phone Chelle Elam MD Primary [...] on file Legal Sex Female 6:38 AM MANUFACTURING QUALITY TECHNICIAN Gender Identity Not on file Sexual Orientation Not on file Obstetrics History Last Filed Vital Signs Vital Sign Reading Time Taken Comments Blood Pressure 168/100 05/22/2023 3:30 PM MANUFACTURING QUALITY TECHNICIAN Pulse 80 05/22/2023 3:30 PM MANUFACTURING QUALITY TECHNICIAN Temperature 36.8 C (98.2 F) 05/22/2023 1:36 PM MANUFACTURING QUALITY TECHNICIAN Respiratory Rate 18 05/22/2023 3:30 PM MANUFACTURING QUALITY TECHNICIAN Oxygen Saturation 100% 05/22/2023 3:30 PM MANUFACTURING QUALITY TECHNICIAN Inhaled Oxygen Concentration - - Weight 108 kg (238 lb) 05/22/2023 1:36 PM MANUFACTURING QUALITY TECHNICIAN Height 165.1 cm (5' 5) 05/22/2023 1:36 PM MANUFACTURING QUALITY TECHNICIAN Body Mass Index 39.61 05/22/2023 1:36 PM MANUFACTURING QUALITY TECHNICIAN Plan of Treatment Health Maintenance Due Date [...] this topic Medical Devices Implanted Type Area Steam Plant Control Room Operator Device Identifier Shelf Expiration Date Model / Serial / Lot Angio-Seal Vip 6fr Closere Device [id number] - [id number] Implanted:Qty: 1 on 11/24/2021 by Shawn Mars MD at [facility] [id number] 08/18/2022 [id number] / / [id number] Insurance [facility] CLAIM[facility]S [facility] Advance Directives For more information, please contact: [phone] * Full Code (Latest Code Status on File) Date Activated Date Inactivated Comments 11/22/2021 10:19 PM 11/24/2021 11:16 PM Care Teams Automotive Sales Executive Relationship Specialty Start Date End Date Chelle Elam MD [address] [address] PCP - General Family Medicine 11/22/21
--- OUTSIDE RECORDS SUMMARY | 2024-11-26 11:12 | XMS_ITS | Referral Summary ---
Author Organization [facility] Address [address] [place] [id number] Care Team Providers Care Administrative Office Assistant Name Role Phone Chelle Elam MD Primary [...] on file Legal Sex Female 6:38 AM [employer] Gender Identity Not on file Sexual Orientation Not on file Last Filed Vital Signs Vital Sign Reading Time Taken Comments Blood Pressure 168/100 05/22/2023 3:30 PM [employer] Pulse 80 05/22/2023 3:30 PM [employer] Temperature 36.8 C (98.2 F) 05/22/2023 1:36 PM [employer] Respiratory Rate 18 05/22/2023 3:30 PM [employer] Oxygen Saturation 100% 05/22/2023 3:30 PM [employer] Inhaled Oxygen Concentration - - Weight 108 kg (238 lb) 05/22/2023 1:36 PM [employer] Height 165.1 cm (5' 5) 05/22/2023 1:36 PM [employer] Body Mass Index 39.61 05/22/2023 1:36 PM [employer] Plan of Treatment Not on file Medical Devices Implanted Type Area Production Support Manager Device Identifier Shelf Expiration Date Model / Serial / Lot Angio-Seal Vip 6fr Closere Device [id number] - [id number] Implanted:Qty: 1 on 11/24/2021 by Shawn Mars MD at [facility] [id number] 08/18/2022 [id number] / / [id number] Insurance [facility] CLAIMS [id number] [place] [address] CLAIMS MRA Member Subscriber Plan / Payer (Ef fective 2023-Present) Name:Janett Thompson Relation to Subscriber:Self Name:Janett Thompson Payer ID:Not on file Group ID:Not on file Type:OTHER Address: [facility] [address] [facility] Advance Directives For more information, please contact: [phone] * Full Code (Latest Code Status on File) Date Activated Date Inactivated Comments 11/22/2021 10:19 PM 11/24/2021 11:16 PM Care Teams Administrative Office Assistant Relationship Specialty Start Date End Date Chelle Elam MD [address] [facility] [address] [facility] [address] [place] [id number] PCP - General Family Medicine 11/22/21
--- OUTSIDE RECORDS SUMMARY | 2024-11-26 11:12 | XMS_ITS | CONTINUITY OF CARE DOCUMENT ---
Author Name bell luu Address Unknown Organization [facility] Address [address] [place] [address] [address] [place] [address] Phone [phone] Care Team Providers Care Service Parts Coordinator Name Role Phone Ross ALCANTAR, Collin Unavailable PRAVIN ALCANTAR, LINH Ruiz Unavailable Unavailmarie ORDAZ MD, MIRIAM Lucas Unavailable INSURANCE PROVIDERS Payer name Policy type / Coverage type [employer] red republican ID TAMERA MARINO [id number]
[2024-11-26] MEDS: ONDANSETRON INJ 4 MG/2 ML VIAL IV PUSH (11:25)
[2024-11-26] MEDS: MORPHINE SULFATE (*CRX) 4 MG/ML INJ IV PUSH (11:25)
[2024-11-26] MEDS: SODIUM CHLORIDE 0.9% IV 1,000 ML 999 ML IV CONT (11:25)
[2024-11-26 11:35] LABS: Basophils Absolute Auto 0.1 K/mm3 (0.0-0.1); Eosinophils Absolute Auto 0.1 K/mm3 (0-0.3); Eosinophils Percent Auto 1.3 % (0-4.4); Hematocrit 39.8 % (37.0-47.0); Hemoglobin 12.5 g/dL (12.0-15.0); Immature Granulocyte Absolute 0.02 K/mm3 (0.00-0.031); Immature Granulocyte Percent A 0.3 % (0-0.5); Lymphocytes Absolute Auto 2.11 K/mm3 (0.9-3.2); Lymphocytes Percent Auto 34.6 % (18.3-44.2); Mean Corpuscular HGB Conc 31.4 g/dl (32-36); Mean Corpuscular Hemoglobin 27.7 pg (26-34); Mean Corpuscular Volume 88.2 fl (80-100); Mean Platelet Volume 10.5 fl (7.4-10.4); Monocytes Absolute Auto 0.6 K/mm3 (0.1-0.6); Monocytes Percent Auto 10.5 % (2.6-8.5); Neutrophils Absolute Auto 3.2 K/mm3 (1.3-6.7); Neutrophils Percent Auto 52.3 % (45.5-73.1); Platelet Count Result 314 k/mm3 (150-375); Red Blood Count 4.51 M/mm3 (4.2-5.4); Red Cell Distribution Width 14.2 % (11.5-14.5); White Blood Count 6.1 K/mm3 (4.5-10.0)
[2024-11-26 11:47] LABS: Alanine Aminotransferase 17 U/L (6-35); Albumin Level 4.1 g/dL (3.5-5.1); Alkaline Phosphatase 88 U/L (38-126); Anion Gap 8 mmol/L (4-12); Aspartate Amino Transferase 30 U/L (14-36); Bilirubin,Total 0.6 mg/dL (0.2-1.3); Blood Urea Nitrogen 8 mg/dL (7-17); Calcium 9.1 mg/dL (8.4-10.2); Carbon Dioxide 25 mmol/L (22-30); Chloride 107 mmol/L (98-107); Estimated CRCL calculation 89 ml/min; Estimated Glomerular Filt Rate > 60; Glucose 97 mg/dL (65-110); Lipase 21 U/L (23-300); Potassium 3.8 mmol/L (3.4-5.0); Sodium 140 mmol/L (137-145); Total Protein 7.9 g/dL (6.3-8.2)
--- NOTE | 2024-11-26 13:17 | PC.NURSE ---
educated pt on trying to keep arm straight to let IV fluids run. Pt has about 350mLs left to infuse.
[2024-11-26 14:39] VITALS: BP 170/80; PULSE 88; RESP 16; O2SAT 100
== END 2024-11-26 15:20 | disposition home or self-care (01) ==
PROVIDERS: Emergency Medicine; Emergency Provider Emergency Medicine; PCP Family Medicine
DX: N83.202 Unspecified ovarian cyst, left side (principal); I10 Essential (primary) hypertension; E78.2 Mixed hyperlipidemia
CPT/HCPCS: 36415; 74177; 80053; 81001; 81025; 83690; 85025; 96361; 96374; 96375; 99284; J2270; J2405; J7030; Q9967

== ENCOUNTER 2025-02-28 12:51 | Outpatient (CLI) | payer OTHER, SELFPAY ==
--- NOTE | ~2025-02-28 | MR_ITS ---
EXAMINATION: MR lumbar spine wo jennifer, 02/28/2025 13:00 CDT HISTORY: lumbar radiculopathy COMPARISON: 08/05/2023 TECHNIQUE: Multi-planar multi-sequence images were obtained of the lumbar spine without contrast per protocol. FINDINGS: Grade 1 anterolisthesis of L4 on L5, no fracture is identified. Marrow signal is appropriate with scattered areas of probable hemangioma formation. Posterior alignment intact. No abnormal signal in the posterior elements Conus terminates at T12-L1, no abnormal signal within the cord Moderate loss of disc height throughout with disc desiccation and endplate degenerative changes at L4-5 and L5-S1 The soft tissues are unremarkable L5-S1: Circumferential bulging of the disc with ligamentum flavum and facet hypertrophy. No significant lateral recess or canal stenosis. No foraminal stenosis. L4-5: Circumferential bulging of the disc with ligamentum flavum and facet hypertrophy. Moderate bilateral foramina and lateral recess stenosis. Mild canal stenosis. L3-4: No canal or foraminal stenosis L2-L3: No canal or foraminal stenosis L1-L2: No canal or foraminal stenosis IMPRESSION: Degenerative changes detailed above Reviewed, dictated and finalized at location A.
--- NOTE | ~2025-02-28 | XR_ITS ---
EXAMINATION: XR pelvis 1-2V, 02/28/2025 13:19 CDT HISTORY: pelvic pain COMPARISON: No comparisons available. Findings: No acute fracture or malalignment. No significant degenerative changes. Soft tissues unremarkable. Impression: No acute fracture or malalignment. Reviewed, dictated and finalized at location A. Impression: No acute fracture or malalignment.
== END 2025-02-28 12:52 | disposition home or self-care (01) ==
PROVIDERS: PCP Physical Medicine & Rehabilitation Pain Medicine; Visit Provider Physical Medicine & Rehabilitation Pain Medicine
DX: M54.16 Radiculopathy, lumbar region (principal); M51.369 Other intervertebral disc degeneration, lumbar region without mention of lumbar back pain or lower extremity pain
CPT/HCPCS: 72148; 72170

== ENCOUNTER 2025-05-04 11:36 | Outpatient (CLI) | payer OTHER, SELFPAY ==
--- NOTE | ~2025-05-04 | XR_ITS ---
Examination: XR knee LT 3V Clinical History: M25.562 - Pain in left knee Comparison: None Technique: 3 views left knee Findings/impression: 1. No fracture, dislocation, or effusion left knee. 2. No significant degenerative changes. Reviewed, dictated and finalized at location R. IR MILLER
== END 2025-05-04 11:37 | disposition home or self-care (01) ==
PROVIDERS: PCP Family Medicine
DX: M25.562 Pain in left knee (principal)
CPT/HCPCS: 73562